=== PATIENT | female | born 1950 | race Caucasian/White ===

== ENCOUNTER 2016-09-16 14:02 | Outpatient (RCR) | payer MEDICAID, MEDICARE, OTHER ==
--- OUTSIDE RECORDS SUMMARY | 2016-08-24 14:11 | XMS REPORT | Continuity of Care Document ---
Author Author [facility] Organization [facility] Address Unknown Phone Unavailable Care Team Providers Care Breast Surgeon Name Role Phone Colleen Deal PCP [phone] Source Comments Some departments are not documenting in the electronic medical record. If you do not see the information that you expected, contact Release of Information in the Health Information Management department at [phone] for further assistance in locating additional records.[facility] Active Allergies and Adverse Reactions Allergen Noted Date Severity Reactions Comments Codeine 05/26/2016 Low NAUSEA ONLY Morphine 05/18/2016 Medium RASH Muscle spasms Current Medications Prescription Sig. Disp. Refills Start End Date Status Date pantoprazole DR Take 40 mg by mouth Active (PROTONIX) 40 mg tablet daily. valsartan (DIOVAN) 320 mg Take 320 mg by mouth Active tablet daily. fluoxetine (PROZAC) 60 mg Take 60 mg by mouth Active tablet daily. atenolol (TENORMIN) 100 Take 100 mg by mouth Active mg tablet daily. colchicine 0.6 mg tablet Take 0.6 mg by mouth Active daily. amLODIPine (NORVASC) 10 Take 10 mg by mouth Active mg tablet daily. metFORMIN-ER(+) Take 1,000 mg by mouth Active (FORTAMET) 1,000 mg twice daily. extended release tablet atorvastatin (LIPITOR) 20 Take 20 mg by mouth Active mg tablet daily. oxyCODONE (ROXICODONE, Take 1-2 Tabs by mouth 45 Tab 0 07/06/20 Active OXY-IR) 5 mg tablet every 3 hours as needed 16 for Pain Earliest Fill Date: 07/06/16 polyethylene glycol 3350 Take 1 Packet by mouth 30 Each 0 07/06/20 Active (MIRALAX) 17 g packet daily. 16 senna/docusate Take 1 Tab by mouth twice 60 Tab 0 07/06/20 Active (SENOKOT-S) 8.6/50 mg daily. 16 tablet anastrozole (ARIMIDEX) 1 Take 1 Tab by mouth 30 Tab 3 07/27/20 Active mg tablet daily. TO begin AFTER 16 completion of radiation therapy Indications: Malignant neoplasm of pelvis enoxaparin (LOVENOX) 40 Inject 40 mg under the Active mg injection syringe skin every 12 hours. enoxaparin (LOVENOX) 40 Inject 0.4 mL under the 28 Syringe 0 06/29/20 07/27/20 mg injection syringe skin daily for 28 days. 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 Elevated testosterone level in female 05/18/2016 Resolved Problems Problem Noted Date Resolved Date Cyst of right ovary 05/18/2016 07/13/2016 Postmenopausal bleeding 05/18/2016 07/13/2016 Endometrial thickening on ultra sound 05/18/2016 07/13/2016 Abnormal cervix finding 05/18/2016 07/13/2016 Most Recent Encounters Date Type Specialty Providers Description 08/04/2016 Office Visit Radiation Therapy Wilver Zuniga MD Primary adenocarcinoma of pelvis (HCC) (Primary Dx) 07/27/2016 Office Visit Oncology Nirav Garcia MD Sex cord tumor of ovary, right (Primary Dx); Primary adenocarcinoma of pelvis (HCC); Sex cord tumor of right ovary 07/15/2016 Cancer Oncology Nirav Garcia MD Conference 07/15/2016 Telephone Oncology Nirav Garcia MD Appointment - Confirmed return visit with Dr. Garcia on 07/27/16 at 1100am 07/13/2016 Office Visit Oncology Mary Richardson PA Diarrhea, unspecified type (Primary Dx); Sex cord tumor of ovary, right; Functional diarrhea; Hot flashes; Bruise 07/07/2016 Documentation Chucho Du 07/05/2016 Surgery Nirav Garcia MD ROBOT-ASSISTED LAPAROSCOPIC RADICAL HYSTERECTOMY, BILATERAL SALPINGO-OOPHORECTOMY, PELVIC LYMPH NODE DISSECTION, CYSTOSCOPY 06/29/2016 Hospital Oncology Sarah Pitts, Encounter CASH CHECKER 06/29/2016 Office Visit Oncology Mary Richardson PA Cyst of ovary, unspecified laterality (Primary Dx) 06/29/2016 Anesthesia Sarah Pitts, Event CASH CHECKER 06/15/2016 Telephone Oncology Nirav Garcia MD Pain - Question about pain medication before surgery 06/10/2016 Telephone Oncology Nirav Garcia MD Records Request - No call- Received fax 06/10/2016 Telephone Oncology Nirav Garcia MD Records Request 06/08/2016 Telephone Cardiology Sandy Nielson RN Results - Nuc results called 06/06/2016 [facility] Radiology Nirav Garcia MD Encounter Josie Álvarez MD 06/06/2016 [facility] Cardiology Josie Álvarez MD Encounter 06/03/2016 Telephone Oncology Nirav Garcia MD Results 05/30/2016 Documentation Cardiology Kathleen Orozco Labs Only - FLP 05/30/2016 Orders Only Cardiology Charis Desai RN 05/27/2016 Telephone Oncology Nirav Garcia MD Appointment - schedule doppler 05/26/2016 Office Visit Cardiology Josie Álvarez MD New Patient; Pre-op Clearance - hysterectomy with Dr. Nirav Garcia 05/26/2016 Telephone Nirav Loyola MD Records Request - Received Medical Records 05/25/2016 Telephone Nirav Loyola MD Referral - Schedule patient for cardiac clearance 05/25/2016 Telephone Oncology Nirav Garcia MD Referral - Informed patient of referral to [facility] Social History Tobacco Use Types Packs/Day Years Used Date Former Smoker Cigarettes 1.5 50 Quit: 10/18/2015 Smokeless Tobacco: Never Used Alcohol Use Drinks/Week oz/Week Comments No Last Filed Vital Signs Vital Sign Reading Time Taken Blood Pressure 143/75 08/04/2016 11:09 AM [employer]NIC STUDIES PROFESSOR Pulse 76 08/04/2016 11:09 AM ETHNIC STUDIES PROFESSOR Temperature 36.4 C (97.5 F) 08/04/2016 11:09 AM ETHNIC STUDIES PROFESSOR Respiratory Rate 16 08/04/2016 11:09 AM ETHNIC STUDIES PROFESSOR Height 1.676 m (5' 5.98") 08/04/2016 11:09 AM ETHNIC STUDIES PROFESSOR Weight 101.787 kg (224 lb 6.4 08/04/2016 11:09 AM ETHNIC STUDIES PROFESSOR oz) Body Mass Index 36.24 08/04/2016 11:09 AM ETHNIC STUDIES PROFESSOR Oxygen Saturation 98% 08/04/2016 11:09 AM ETHNIC STUDIES PROFESSOR Plan of Care Date Type Specialty Providers Description 10/26/2016 Appointment Oncology Nirav Garcia MD [address] [place] [address] [phone] (Fax) Health Maintenance Due Date Last Done Comments Hepatitis C Screening 1950 Physical (Comprehensive) 1958 Exam Pertussis Vaccine 1962 Tetanus Vaccine 1968 Breast Cancer Screening 1991 Colorectal Cancer 2001 Screening Shingles Vaccine 2011 Influenza Vaccine 05/19/2016 Cervical Cancer Screening 05/18/2019 05/18/2016 Procedures from Last 3 Months Procedure Name Priority Date/Time Associated Diagnosis Comments PROCEDURES-SCAN 07/09/2016 Results for this 8:05 AM CDT procedure are in the results section. ROBOT-ASSISTED 07/05/2016 Postmenopausal bleeding LAPAROSCOPIC RADICAL 11:35 AM CDT HYSTERECTOMY, BILATERAL SALPINGO-OOPHORECTOMY, PELVIC LYMPH NODE DISSECTION, CYSTOSCOPY Special Needs Pending clearances Results from Last 3 Months TUMOR PROGNOSTIC MARKERS SCAN (08/01/2016 11:57 AM)Only the most recent of 2 results within the time period is included. Narrative Ordered by an unspecified provider. PATHOLOGY INTEROPERATIVE REPORT SCAN (07/12/2016 8:56 AM) Narrative Ordered by an unspecified provider. PROCEDURES-SCAN (07/09/2016 8:05 AM) Narrative Ordered by an unspecified provider. NON-STATIC BALANCER CYTOLOGY (BODY FLUIDS/TISSUE) (07/06/2016 1:35 PM) Component Value Range Cytology [facility] [email or web address] Mishel Young MD, Director Cytopathology Department of Pathology and Laboratory Medicine [address] [place] [address] Office: [phone] CYTOLOGY REPORT NAME: OMAIRA GEORGE CYTOLOGY #: [id number] MR #: [id number] ALT ID #: [id number] #: [id number] LOCATION: 53 DATE OF PROCEDURE: 07/06/2016 13:35 AGE: 65 SEX: F DATE RECEIVED: 07/06/2016 : 1950 TIME RECEIVED: 13:35 PHYSICIAN: NIRAV FINNEY DATE OF REPORT: 07/08/2016 COPY TO: DATE OF PRINTIN07/08/2016 HISTORY: Date of Last Menstrual Period: None Given Menstrual History: None Given Contraceptive History: None Given Cancer History: None Given Infection History: None Given Treatment History: None Given Other Clinical Conditions: None Given CLINICAL DIAGNOSIS: 65 year old female with a clinical history of elevated testosterone and ovarian cyst. MATERIAL RECEIVED: A: Pelvic Washing ################################################## ###################### Final Diagnosis: A. Pelvic Washing: Negative for malignant cells. Please also see concurrent surgical pathology report ([id number]). Attestation: By this signature, I attest that I have personally formulated the final interpretation expressed in this report and that the above diagnosis is based upon my examination of the slides and/or other material indicated in this report. cameron/07/07/2016 +++Electronically Signed Out By Mera Porter MD PhD, Attending Physician+++ Cervical cytology is a SCREENING TEST primarily for detecting cancers and precancerous lesions. This screening test has a well documented false negative rate. Your patient's pap test results should be interpreted in conjunction with history and clinical findings. Reported using [employer] terminology. ################################################## ###################### POC GLUCOSE (07/06/2016 12:29 PM)Only the most recent of 5 results within the time period is included. Component Value Range Glucose, POC 135 (H) 70-100 MG/DL COMPREHENSIVE METABOLIC PANEL (07/06/2016 4:55 AM) Component Value Range Sodium 139 137-147 MMOL/L Potassium 3.6 3.5-5.1 MMOL/L Chloride 104 98-110 MMOL/L Glucose 122 (H) 70-100 MG/DL Blood Urea Nitrogen 23 7-25 MG/DL Creatinine 1.09 (H) 0.4-1.00 MG/DL Calcium 8.2 (L) 8.5-10.6 MG/DL Total Protein 6.4 6.0-8.0 G/DL Total Bilirubin 0.7 0.3-1.2 MG/DL Albumin 3.8 3.5-5.0 G/DL Alk Phosphatase 54 25-110 U/L AST (SGOT) 51 (H) 7-40 U/L CO2 24 21-30 MMOL/L ALT (SGPT) 48 7-56 U/L Anion Gap 11 3-12 eGFR Non 51 (L)Comment: >60 mL/min The eGFR is not validated for use in drug dosing adjustments. Continue to use estimated creatinine clearance per dosing reference text. Please contact the Clinical Pharmacist for questions. eGFR >60Comment: >60 mL/min The eGFR is not validated for use in drug dosing adjustments. Continue to use estimated creatinine clearance per dosing reference text. Please contact the Clinical Pharmacist for questions. Specimen Blood CBC (07/06/2016 4:55 AM)Only the most recent of 2 results within the time period is included. Component Value Range White Blood Cells 13.1 (H) 4.5-11.0 K/UL RBC 4.17 4.0-5.0 M/UL Hemoglobin 13.1 12.0-15.0 GM/DL Hematocrit 38.6 36-45 % MCV 92.5 80-100 FL MCH 31.3 26-34 PG MCHC 33.9 32.0-36.0 G/DL RDW 14.9 11-15 % Platelet Count 141 (L) 150-400 K/UL MPV 9.4 7-11 FL Specimen Blood PHOSPHORUS (07/06/2016 4:55 AM) Component Value Range Phosphorus 4.0 2.0-4.0 MG/DL Specimen Blood MAGNESIUM (07/06/2016 4:55 AM) Component Value Range Magnesium 1.2 (L) 1.6-2.6 MG/DL Specimen Blood SURGICAL PATHOLOGY (07/05/2016 3:36 PM) Component Value Range PATHOLOGY REPORT [facility] [email or web address] Mishel Young MD, PhD, Director of Anatomic Pathology Department of Pathology and Laboratory Medicine [address] [place] [id number] Surgical Pathology Office: [phone] SURGICAL PATHOLOGY REPORT NAME: OMAIRA GEORGE SURG PATH #: [id number] MR #: [id number] SPECIMEN CLASS: SR BILLING #: [id number] ALT ID #: LOCATION: 53 DATE OF PROCEDURE: 07/05/2016 AGE: 65 SEX: F DATE RECEIVED: 07/05/2016 : 1950 TIME RECEIVED: 15:36 PHYSICIAN: NIRAV FINNEY DATE OF REPORT: 07/13/2016 COPY TO: DATE OF PRINTIN07/13/2016 ################################################## ###################### Final Diagnosis: A. Soft tissue, "uterosacral nodule", biopsy: Metastatic adenocarcinoma. See comment. B. 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 See comment #1. Fallopian tube: No diagnostic abnormalities. C. Uterus and cervix, hysterectomy: Cervix: Low grade squamous intraepithelial lesion (LSIL/BETSY 1). Microglandular hyperplasia and Nabothian cyst. Endometrium: Weakly proliferative endometrium Myometrium, right parametrium: Involvement by adenocarcinoma, endometrioid type with squamous differentiation arising in endometriosis and adenomyosis within the posterior wall of the uterus and the right parametrium, FIGO I, nuclear grade 2. See comment #2. Left parametrium: There is no evidence of malignancy. Lymph node (1): There is no evidence of malignancy. (0/1) D. Soft tissue, "left uterosacral peritoneum", excision: No diagnostic abnormalities. E. Ovary and fallopian tube, "left tube and ovary", salpingo-oophorectomy: Ovary: No diagnostic abnormalities. Fallopian tube: Simple paratubal cysts. F. Lymph nodes, "left pelvic lymph nodes", dissection: There is no evidence of malignancy in 10 lymph nodes (0/10). G. Lymph nodes, "right pelvic lymph nodes", dissection: There is no evidence of malignancy in 4 lymph nodes (0/4). Comment: Comment #1: The tumor in the right ovary is composed of sheets, cords and nests of cells with abundant eosinophilic, clear and foamy cytoplasm. Tumor nuclei are round with prominent nucleoli and occasional pseudoincludions. Immunohistochemical stains performed on block B3 show the tumor cells are positive for Inhibin, estrogen and progesterone. They are negative for OCT4, CAM52, D2-40, AFP and b-HCG. Ki-67 revealed proliferation index of 1-2%. The differential diagnosis should include a steroid cell tumor, not otherwise classified. 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 We were unable finding the classic crystals of Shelia seen in classic Leydig cell tumors. This tumor is expected to behave in a benign fashion, however, close follow up is recommended. OVARY or FALLOPIAN TUBE: Oophorectomy, Salpingo-Oophorectomy, SubtotalOophorectomy or Removal of Tumor in Fragments, Hysterectomy with Salpingo-Oophorectomy CAP Version: OvaryFallopian 1.0.0.0 Note: Applies to ovarian primary tumor. If bilateral tumors of 2 different histologic types are present, separate case summaries should be used for eachtumor. 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 Histologic Grade (required for all carcinomas except clear cell carcinoma, low- and high-grade serous carcinoma, and Sertoli-Leydig cell tumors) World Health Organization (WHO) Grading System (applies to all carcinomas, including serous carcinomas) Not applicable Implants (applies only to advanced stage serous/seromucinous borderline tumors) Not present Extent of Involvement of Other Tissues/Organs Left ovary Not involved Right fallopian tube Not involved Left fallopian tube Not involved Uterus Not involved Peritoneal Ascitic Fluid: Negative for malignancy (normal/benign): Please see cytology report [id number] Pleural Fluid Not performed/unknown Treatment Effect (applicable to carcinomas treated with neoadjuvant therapy): Not applicable Lymph-Vascular Invasion Not identified Pathologic Staging (pTNM [FIGO]): pT1a N0 Mx Primary Tumor (pT) Ovary pT1a [IA]: Tumor limited to one ovary; capsule intact, no tumor on ovarian surface. No malignant cells in ascites or peritoneal washings Regional Lymph Nodes (pN) pN0: No regional lymph node metastasis Pelvic lymph nodes: Number of Pelvic Lymph Nodes Examined: 15 Number of Pelvic Lymph Nodes Involved: 0 Distant Metastasis (pM) (required only if confirmed pathologically in this case) Not applicable The pathologic stage assigned here should be regarded as provisional, as it reflects only current pathologic data and does not incorporate full knowledge of the patient's clinical status and/or prior pathology. Comment #2: Immunohistochemical stains performed on block A1 show the tumor cells are positive for CK7, and negative for CK5/6,20, calretinin, WT1 (focal/weak) , and p53, supporting the above diagnosis. Ki-67 proliferation index is around 30%. Hysterectomy, With or Without Other OrgansorTissues CAP Version: Endometrium 3.3.0.0 Specimen Uterine corpus Cervix Left parametrium Right parametrium Vaginal cuff Procedure (select all that apply) Radical hysterectomy Lymph Node Sampling (select all that apply) Performed: Pelvic lymph nodes (0/15) Specimen Integrity Intact hysterectomy specimen Tumor Site Other (specify): Serosal surface, posterior wall of myometrium and right parametrium Tumor Size Greatest dimension: 1.8 cm Additional dimensions: 1.7 x 1.2 cm Histologic Type Endometrioid adenocarcinoma, with squamous differentiation Histologic Grade International Federation of Gynecology and Obstetrics (FIGO) Grading System (applies to endometrioid and mucinous adenocarcinomas only): FIGO grade 1 For other carcinomas: G1: Well differentiated Myometrial Invasion Present: On the outer surface and within adenomyosis Involvement of Cervix (select all that apply) Not involved Extent of Involvement of Other Organs (select all that apply) Right ovary Not involved Left ovary Not involved Right fallopian tube Not involved Left fallopian tube Not involved Vagina Not involved Right parametrium Involved Left parametrium Involved Not involved Omentum N/A Rectal wall N/A Bladder wall N/A Pelvic wall N/A Bladder mucosa and/or bowel mucosa N/A Peritoneal Ascitic Fluid Negative for malignancy/normal/benign Margins Tumor was identified in parametrium Lymph-Vascular Invasion Not identified Prognostic markers ordered: Yes.See Tumor Prognostic Marker addendum in Results Review. Pursuant to the Backup Administrator Program at the [facility] Pathology Department, selected slides from this case have been concurrently reviewed by the following pathologists: Dr. Wilfrido Sanchez and Francesco Bustamante who agree with the final diagnosis. Attestation: By this signature, I attest that I have personally formulated the final interpretation expressed in this report and that the above diagnosis is based upon my examination of the slides and/or other material indicated in this report. +++Electronically Signed Out By+++ ma/07/05/2016 Interpreted by: Mera Porter MD PhD, Attending Physician Shmuel Mccullough D.O. 07/13/2016 ################################################## ###################### Material Received: A: uterosacral nodule B: right tube and ovary C: uterus and cervix D: left uterosacral peritoneum E: left tube and ovary F: left pelvic lymph nodes G: right pelvic lymph ndoes History: 65-year-old female with a clinical history of postmenopausal bleeding, elevated testosterone level and ovarian cyst. Gross Description: A. Received fresh, labeled with the patient's name and "uterosacral nodule" is a 0.4 x 0.4 x 0.3 cm alvarez pink portion of soft tissue. The specimen is entirely submitted for frozen section consultation with a remnant being placed in cassette A1FS. (ads) B. Received fresh labeled with the patient's name and "right tube and ovary" is a 22 gram oophorectomy specimen with ovary measuring 4.1 x 3.2 x 2.0 cm. The external surface is smooth alvarez. The ovary is opened to reveal a lobular, yellow and well-circumscribed tumor measuring 2.7 x 2.2 x 2.0 cm. There is a 1.9 x 0.5 cm area of grossly unremarkable ovarian tissue. Attached to the ovary is a 6.5 cm fimbriated fallopian tube with a diameter of 0.3 cm. The external surface of the fallopian tube is smooth and pink. The tube is serially sectioned to reveal a pinpoint lumen. No gross abnormalities are observed within the fallopian tube. A single fragment of mesosalpinx measures 3.1 x 2.1 x 0.8 cm. The specimen is submitted as follows: B2-B5 Ovarian mass submitted entirely. B6 Fallopian tube entirely. B7-B8 Mesosalpinx entirely. C. Fixative: Fresh Labeled: "Uterus and cervix" Weight: 115 grams Measurement: Cervical os to fundus 8.6cm, cornu to cornu 5.9cm, anterior to posterior 2.8cm Serosa: Alvarez-pink and smooth Cervical os: Slit like and measures 1.4 cm. Endometrial cavity: 3.7 x 1.9 cm Endocervical canal: 3.1 x 0.7 cm Endometrial thickness: 0.3 cm Myometrial thickness: 2.1 cm Right parametrium: 7.6 x 1.4 x 0.9 cm Left parametrium: 6.4 x 1.1 x 1.1 cm Anterior Vaginal cuff: 5.1 x 2.4 x 0.6cm Posterior vaginal cuff: 5.1 x 1.7 x 0.9cm Located in the posterior wall of the uterus is a 1.8 x 1.7 x 1.2 cm alvarez-white whorled nodule, no hemorrhage or necrosis is grossly identified. The specimen is submitted for frozen and permanents as follows: C1FS Uterus frozen section remnant. C2FS Cervix frozen section remnant. C3-C5 12:00-3:00 Cervix, submitted sequentially. C6-C9 3:00-6:00 Cervix, submitted sequentially. C10-C14 6:00-9:00 cervix, submitted sequentially. C15-C19 9:00-12:00 cervix, submitted sequentially. C20 Anterior lower uterine segment. C21 Posterior lower uterine segment. C22 Full thickness anterior wall. C23 Full thickness posterior wall. C24-C31 Right left parametrium (inked black). C32-C39 Left parametrium (inked black). C40-C41 Entire posterior wall nodule. C42-C45 Herb Digger sections from posterior wall serosa. (ads) D. Received in formalin, labeled with the patient's name and "left uterosacral peritoneum" is a 2.7 x 0.7 x 0.6 cm in aggregate alvarez-pink portions of soft tissue. The specimen is entirely submitted in cassettes D1 and D2. (ads) E. Received fresh and labeled with the patient's name and "left tube and ovary" is a 4 gram oophorectomy specimen with ovary measuring 3.1 x 2.5 x 0.8 cm. The external surface of the ovary is smooth and alvarez. The ovary is opened to reveal grossly normal ovary. Attached to the ovary is a 3.8 cm fimbriated fallopian tube with a diameter of 0.7 cm. The external surface of the fallopian tube is grossly normal. A single fragment of mesosalpinx is included, measuring 3.2 x 2.3 x 0.8 cm. The fallopian tube is serially sectioned to reveal a pinpoint lumen. No gross abnormalities are observed within the fallopian tube. The specimen is submitted as follows: E1-E3 Entire ovary. E4 Fimbria bisected. E5 Remainder of fallopian tube. E6-E7 Entire mesosalpinx. (ads) F. Received in formalin labeled with the patient's name and "left pelvic lymph nodes" are ten pink-alvarez fatty possible lymph nodes ranging from 0.3 cm up to 2.5 cm in greatest dimension. All identified lymph nodes are entirely submitted as follows: F1 Bisected single lymph node. F2-F4 Two lymph nodes submitted per cassette. F5 Three lymph nodes. (arl) G. Received in formalin labeled with the patient's name and "right pelvic lymph nodes" are five pink-alvarez fatty possible lymph nodes ranging from 0.4 cm up to 2.6 cm in greatest dimension, all identified lymph nodes are entirely submitted as follows: G1 Bisected lymph node. G2 Two whole lymph nodes. G3 Two whole lymph nodes. (arl) paj/07/05/2016 Shmuel Mccullough D.O. Intraoperative Consultation: A1FS, soft tissue," uterosacral nodule", biopsy: Atypical glandular cells in a desmoplastic stroma, worrisome for metastatic adenocarcinoma. Definitive diagnosis deferred to permanent sections. 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 steroid tumor not otherwise specified. C1FS, uterus and cervix, "uterus and cervix", biopsy: Negative for malignancy. Mera Porter MD PhD, Attending Physician If immunohistochemical stains and/or in situ hybridization are cited in this report, the performance characteristics were determined by the Department of Pathology and Laboratory Medicine of the [facility] ([employer]) in compliance with CLIA'88 regulations. Some of these tests rely on the use of "analyte specific reagents" and are subject to specific labeling requirements by the FDA. Known positive and negative control tissues demonstrate appropriate staining. This testing was developed by the Department of Pathology and Laboratory Medicine of the [facility]. It has not been cleared or approved by the FDA. The FDA has determined that such clearance or approval is not necessary. TYPE & CROSSMATCH (07/05/2016 1:20 PM) Component Value Range Units Ordered 0 Crossmatch Expires 07/08/2016 Record Check FOUND ABO/RH(D) O POS Antibody Screen NEG Electronic Crossmatch YES Specimen Blood TYPE & SCREEN (NOT CROSSMATCH ELIGIBLE) (06/29/2016 1:39 PM) Component Value Range ABO/RH(D) O POS Antibody Screen NEG Blood Component Type RED CELL GROUP BASIC METABOLIC PANEL (06/29/2016 1:39 PM) Component Value Range Sodium 138 137-147 MMOL/L Potassium 3.8 3.5-5.1 MMOL/L Chloride 104 98-110 MMOL/L CO2 22 21-30 MMOL/L Anion Gap 12 3-12 Glucose 87 70-100 MG/DL Blood Urea Nitrogen 15 7-25 MG/DL Creatinine 1.17 (H) 0.4-1.00 MG/DL Calcium 8.8 8.5-10.6 MG/DL eGFR Non 47 (L)Comment: >60 mL/min The eGFR is not validated for use in drug dosing adjustments. Continue to use estimated creatinine clearance per dosing reference text. Please contact the Clinical Pharmacist for questions. eGFR 56 (L)Comment: >60 mL/min The eGFR is not validated for use in drug dosing adjustments. Continue to use estimated creatinine clearance per dosing reference text. Please contact the Clinical Pharmacist for questions. US DUPLEX SCAN CAROTID BILATERAL (06/06/2016 1:47 PM) Impressions Mild calcified right carotid bulb plaque.There is no evidence of hemodynamically significant CCA or ICA stenosis. Finalized by Nolvia Hale M.D. on 06/06/2016 4:59 PM. Dictated by Nolvia Hale M.D. on 06/06/2016 4:56 PM. Narrative Carotid Doppler Clinical Indication: Female, 65 years; hypertension, coronary artery disease; preoperative surgical clearance. Technique:Multiple grayscale sonographic images were obtained throughout both carotid systems with additional color and spectral Doppler acquisitions. Comparison: None Findings: RIGHT: CCA 75 cm/sec ECA 70 PSV ICA65 EDV ICA17 Ratio ICA/CCA <1.0 The vertebral artery demonstrates normal direction of flow. Grayscale images demonstrate mild predominantly calcified plaque at the carotid bulb. Spectral analysis demonstrates no critical CCA or ICA stenosis. LEFT: CCA 71 cm/sec ECA 95 PSV ICA57 EDV ICA27 Ratio ICA/CCA <1.0 The vertebral artery demonstrates normal direction of flow. Grayscale images demonstrate no significant plaque or high-grade stenosis. Spectral analysis demonstrates no critical CCA or ICA stenosis. Procedure Note Interface, Radiant Results - MonJun 06, 2016 5:02 PM CDT Carotid Doppler Clinical Indication: Female, 65 years; hypertension, coronary artery disease; preoperative surgical clearance. Technique: Multiple grayscale sonographic images were obtained throughout both carotid systems with additional color and spectral Doppler acquisitions. Comparison: None Findings: RIGHT: CCA 75 cm/sec ECA 70 PSV ICA 65 EDV ICA 17 Ratio ICA/CCA <1.0 The vertebral artery demonstrates normal direction of flow. Grayscale images demonstrate mild predominantly calcified plaque at the carotid bulb. Spectral analysis demonstrates no critical CCA or ICA stenosis. LEFT: CCA 71 cm/sec ECA 95 PSV ICA 57 EDV ICA 27 Ratio ICA/CCA <1.0 The vertebral artery demonstrates normal direction of flow. Grayscale images demonstrate no significant plaque or high-grade stenosis. Spectral analysis demonstrates no critical CCA or ICA stenosis. IMPRESSION Mild calcified right carotid bulb plaque. There is no evidence of hemodynamically significant CCA or ICA stenosis. Finalized by Nolvia Hale M.D. on 06/06/2016 4:59 PM. Dictated by Nolvia Hale M.D. on 06/06/2016 4:56 PM. D-SPECT REGADENOSON THALLIUM MPI STRESS TEST (06/06/2016 8:19 AM) Component Value Range Stress Dose 2.5 mCi Rest Dose 0.55 mCi Baseline HR 71 bpm Peak HR 98 bpm Baseline BP - Sys 146 mmHg Peak BP - Sys 140 mmHg PUL TO JESSICA COUNT RATIO 0.38 MPI EF 52 % LV volume 58 mL Referring Provider Colleen Deal MD Study Number [id number] Baseline BP - Day 92 mmHg Peak BP - Day 80 Summed Stress Score 2 Summed Rest Score 0 Nuclear Cardiology In aggregate the current study is low risk in Mortality Risk regards to predicted annual cardiovascular mortality rate. Narrative Nuclear Report [facility] Cardiology Division of Nuclear Cardiac Imaging Consultation Report EXAMINATION: Gated [id number] Chloride myocardial perfusion single-photon emission computed tomography (D-SPECT) for viability, resting regional wall function, post stress ejection fraction, and perfusion imaging utilizing Regadenoson pharmacological stress. Date of Study: 06/06/16 Study#: [id number] KU Billing ID:[id number] Referring Physician: Colleen Deal MD Requested by: Josie Álvarez MD INDICATIONS FOR STUDY (HISTORY): This is a 65 year old female with a history of Hypercholesterolemia HTN and tobacco dependemce.This study is being done in the preoperative setting to rule out significant myocardial ischemia. PROCEDURAL DETAILS:Initially, the patient received a 5 ml intravenous infusion of Regadenoson at 0.08 mg/ml over 10 to 15 seconds. Approximately 20 seconds later 2.5 mCi of [id number] was injected.Throughout the infusion continuous electrocardiographic monitoring and serial electrocardiograms were obtained, as well as intermittent blood pressure recordings. Gated upright D-SPECT tomographic images were then acquired approximately 5 minutes after discontinuation of the regadenoson infusion. When indicated supine D-SPECT images were also obtained. The patient returned in approximately 4 hours and received an additional 0.55 mCi of [id number] Chloride as a reinjected dose to assist in the detection of myocardial ischemia and viability.Images were then reacquired and compared to post stress images. FINDINGS: Pharmacological Stress Electrocardiogram:The patient's resting heart rate was 71 bpm and the resting blood pressure was 146/92.The patients peak stress heart rate was 98 bpm and the peak stress blood pressure was 140/80.The patient experienced flushing. The resting ECG shows Normal sinus rhythm with couple PVC's.Following Regadenoson infusion there are no new diagnostic ECG changes. Conclusion: Pharmacologic stress ECG is negative for ischemia. Yozxqgghi-sj-Kofikmsnvz Count Ratio: 0.38(normal=or < 0.52). Scintigraphic Findings: The LV appears to be normal sized. Mild breast attenuation is seen. There is no TID. Pulmonary tracer uptake is normal Summed Stress Score:2, Summed Rest Score:0 Tomographic:Tomographic images were reconstructed in three orthogonal views. There is mildly decreased inferior wall tracer uptake noted in upright images only. The tracer uptake is completely normal on stress supine images.All myocardial segments appear viable. Polar coordinate map identifies no perfusion abnormalities. Regional Wall Thickening and Motion Post Stress:There is normal left ventricular wall motion and thickening of all myocardial segments. Left Ventricular Ejection Fraction (post stress, in the resting state)= 52 %. Left Ventricular End Diastolic Volume: 58 mL. SUMMARY/OPINION:This study is normal with no evidence of significant myocardial ischemia. Left ventricular systolic function is normal. There are no high risk prognostic indicators present. There are no prior studies available for comparison. ECG/QRS (05/26/2016 8:41 AM) Component Value Range QRS DURATION 104
[~2016-09-16 14:02] MED LIST: AC325T PO; ALLP300T PO; ASP325TEC PO; ATEN50TA PO; CLPD75T PO; CPR500T PO; DOXY100C2 PO; FLUO40CA PO; PNT40TEC PO; PRV20T PO; VALS1TAB43 PO
== END 2016-09-20 09:54 | disposition home or self-care (01) ==
LOC: ONC 14:02
PROVIDERS: ATTEND Radiology Radiation Oncology
DX: Z51.0 Encounter for antineoplastic radiation therapy (principal); C54.1 Malignant neoplasm of endometrium
CPT/HCPCS: 77280; 77290; 77295; 77334; 77336; 77412; 77417; 77470; 99215

== ENCOUNTER 2016-09-21 13:41 | Outpatient (RCR) | payer MEDICARE, MEDICAID ==
--- OUTSIDE RECORDS SUMMARY | 2016-09-20 09:46 | XMS REPORT | Continuity of Care Document ---
Author Author [facility] Organization [facility] Address Unknown Phone Unavailable Care Team Providers Care Segment Block Layer Name Role Phone Colleen Deal PCP [phone] Source Comments Some departments are not documenting in the electronic medical record. If you do not see the information that you expected, contact Release of Information in the Health Information Management department at [phone] for further assistance in locating additional records.[facility] Active Allergies and Adverse Reactions Allergen Noted [...] mg injection syringe skin every 12 hours. Active Problems Problem Noted Date Primary adenocarcinoma [...] Recent Encounters Date Type Specialty Providers Description 09/13/2016 Telephone Oncology Promise Garcia MD Consult - Radiation Oncology Consultation Note received 08/04/2016 Office Visit Radiation Therapy Wilver Zuniga MD Primary adenocarcinoma of pelvis (HCC) (Primary Dx) 07/27/2016 Office Visit Oncology Promise Garcia MD Sex cord tumor of ovary, right (Primary Dx); Primary adenocarcinoma of pelvis (HCC); Sex cord tumor of right ovary 07/15/2016 Cancer Oncology Promise Garcia MD Conference 07/15/2016 Telephone Oncology Promise Garcia MD Appointment - Confirmed return visit with Dr. Garcia on 07/27/16 at 1100am 07/13/2016 Office Visit Oncology Mary Richardson PA Diarrhea, unspecified type (Primary Dx); Sex cord tumor of ovary, right; Functional diarrhea; Hot flashes; Bruise 07/07/2016 Documentation Chucho Du 07/05/2016 Surgery Promise Garcia MD ROBOT-ASSISTED LAPAROSCOPIC RADICAL HYSTERECTOMY, BILATERAL SALPINGO-OOPHORECTOMY, PELVIC LYMPH NODE DISSECTION, CYSTOSCOPY 06/29/2016 [facility] Oncology Sarah Pitts, Encounter SEWING DEMONSTRATOR 06/29/2016 Office Visit Oncology Mary Richardson PA Cyst of ovary, unspecified laterality (Primary Dx) 06/29/2016 Anesthesia Sarah Pitts, Event SEWING DEMONSTRATOR Social History Tobacco Use Types Packs/Day Years Used Date Former Smoker Cigarettes 1.5 50 Quit: 10/18/2015 Smokeless Tobacco: Never Used Alcohol Use Drinks/Week oz/Week Comments No Last Filed Vital Signs Vital Sign Reading Time Taken Blood Pressure 143/75 08/04/2016 11:09 AM CORRECTIONAL FACILITY PSYCHIATRIST Pulse 76 08/04/2016 11:09 AM CORRECTIONAL FACILITY PSYCHIATRIST Temperature 36.4 C (97.5 F) 08/04/2016 11:09 AM CORRECTIONAL FACILITY PSYCHIATRIST Respiratory Rate 16 08/04/2016 11:09 AM CORRECTIONAL FACILITY PSYCHIATRIST Height 1.676 m (5' 5.98") 08/04/2016 11:09 AM CORRECTIONAL FACILITY PSYCHIATRIST Weight 101.787 kg (224 lb 6.4 08/04/2016 11:09 AM CORRECTIONAL FACILITY PSYCHIATRIST oz) Body Mass Index 36.24 08/04/2016 11:09 AM CORRECTIONAL FACILITY PSYCHIATRIST Oxygen Saturation 98% 08/04/2016 11:09 AM CORRECTIONAL FACILITY PSYCHIATRIST Plan of Care Date Type Specialty Providers Description 10/26/2016 Appointment Oncology Promies Garcia MD [address] [place] [address] [phone] (Fax) Health Maintenance Due Date Last Done [...] AM) Narrative Ordered by an unspecified provider. NON-INTERLOCKING AND SIGNAL MECHANIC CYTOLOGY (BODY FLUIDS/TISSUE) (07/06/2016 1:35 PM) Component Value Range Cytology [facility] [email or web address] Mishel Young MD, Director Cytopathology Department of Pathology and Laboratory Medicine [address] [place] [phone] Office: [phone] CYTOLOGY REPORT NAME: RACHNA REDDY CYTOLOGY #: [id number] MR #: [id number] ALT ID #: BILLING #: [id number] LOCATION: 53 DATE OF PROCEDURE: 07/06/2016 13:35 AGE: 65 SEX: F DATE RECEIVED: 07/06/2016 : 1950 TIME RECEIVED: 13:35 PHYSICIAN: PROMISE FINNEY DATE OF REPORT: 07/08/2016 COPY TO: [...] Please also see concurrent surgical pathology report ([id number]). Attestation: By this signature, I attest that I have personally formulated the final interpretation expressed in this report and that the above diagnosis is based upon my examination of the slides and/or other material indicated in this report. [facility]/07/07/2016 +++Electronically Signed Out By Mera Porter MD PhD, Attending Physician+++ Cervical cytology is a SCREENING TEST primarily for detecting cancers and precancerous lesions. This screening test has a well documented false negative rate. Your patient's pap test results should be interpreted in conjunction with history and clinical findings. Reported using [employer] terminology. ################################################## ###################### POC GLUCOSE (07/06/2016 [...] PM) Component Value Range PATHOLOGY REPORT [facility] [email or web address] Mishel Young MD, PhD, Director of Anatomic Pathology Department of Pathology and Laboratory Medicine [address] [place] [id number] Surgical Pathology Office: [phone] SURGICAL PATHOLOGY REPORT NAME: RACHNA REDDY SURG PATH #: [id number] MR #: [id number] SPECIMEN CLASS: SR BILLING #: [id number] ALT ID #: LOCATION: 53 DATE OF PROCEDURE: 07/05/2016 AGE: 65 SEX: F DATE RECEIVED: 07/05/2016 : 1950 TIME RECEIVED: 15:36 PHYSICIAN: PROMISE FINNEY DATE OF REPORT: 07/13/2016 COPY TO: [...] for malignancy (normal/benign): Please see cytology report [id number] Pleural Fluid Not performed/unknown Treatment Effect (applicable [...] addendum in Results Review. Pursuant to the [employer] Senior Specialist Program at the [facility] Pathology Department, selected slides from this case [...] a 0.4 x 0.4 x 0.3 cm alston pink portion of soft tissue. The specimen is entirely submitted for frozen section consultation with a remnant being placed in cassette A1FS. (ads) B. Received fresh labeled with the patient's name and "right tube and ovary" is a 22 gram oophorectomy specimen with ovary measuring 4.1 x 3.2 x 2.0 cm. The external surface is smooth alston. The ovary is opened to reveal a [...] cornu 5.9cm, anterior to posterior 2.8cm Serosa: Alston-pink and smooth Cervical os: Slit like and [...] a 1.8 x 1.7 x 1.2 cm alston-white whorled nodule, no hemorrhage or necrosis is [...] black). C40-C41 Entire posterior wall nodule. C42-C45 Reinforcer sections from posterior wall serosa. (ads) D. Received in formalin, labeled with the patient's name and "left uterosacral peritoneum" is a 2.7 x 0.7 x 0.6 cm in aggregate alston-pink portions of soft tissue. The specimen is entirely submitted in cassettes D1 and D2. (ads) E. Received fresh and labeled with the patient's name and "left tube and ovary" is a 4 gram oophorectomy specimen with ovary measuring 3.1 x 2.5 x 0.8 cm. The external surface of the ovary is smooth and alston. The ovary is opened to reveal grossly [...] and "left pelvic lymph nodes" are ten pink-alston fatty possible lymph nodes ranging from 0.3 cm up to 2.5 cm in greatest dimension. All identified lymph nodes are entirely submitted as follows: F1 Bisected single lymph node. F2-F4 Two lymph nodes submitted per cassette. F5 Three lymph nodes. (arl) G. Received in formalin labeled with the patient's name and "right pelvic lymph nodes" are five pink-alston fatty possible lymph nodes ranging from 0.4 [...] of Pathology and Laboratory Medicine of the [facility] ([employer]) in compliance with CLIA'88 regulations. Some of these tests rely on the use of "analyte specific reagents" and are subject to specific labeling requirements by the FDA. Known positive and negative control tissues demonstrate appropriate staining. This testing was developed by the Department of Pathology and Laboratory Medicine of the [facility]. It has not been cleared or [...]
== END 2016-09-21 14:58 | disposition home or self-care (01) ==
LOC: ONC 13:41
PROVIDERS: ATTEND Radiology Radiation Oncology
DX: C54.1 Malignant neoplasm of endometrium (principal)
CPT/HCPCS: 77412

== ENCOUNTER → 2016-11-15 | Outpatient (CLI) | payer MEDICARE, MEDICAID ==
--- NOTE | 2016-11-15 14:28 | Diagnostic Imaging Report ---
PROCEDURE: CT chest without contrast. TECHNIQUE: Multiple contiguous axial images were obtained through the chest without the use of intravenous contrast. INDICATION: Followup pulmonary nodules. COMPARISON: CT chest of 05/12/2016. FINDINGS: Lungs and airway: No endoluminal lesion in the trachea or central bronchi. Scattered bilateral pulmonary nodules ranging from 3-5 mm are stable. No new pulmonary nodule, mass, or consolidation. Pleura: No pleural effusion or pneumothorax. Heart and mediastinum: Possible tiny calcified left thyroid nodule is unchanged. No supraclavicular or axillary lymphadenopathy. No mediastinal or juxtaphrenic lymphadenopathy. No discrete hilar lymphadenopathy, although evaluation is limited without IV contrast. Heart is borderline enlarged without pericardial effusion. Coronary artery calcifications and/or stents are noted. Normal-caliber thoracic aorta with scattered atherosclerotic calcified plaques. Upper abdomen: Diffuse hypoattenuation of the liver is compatible with diffuse hepatic steatosis. Remainder of the upper abdomen is grossly normal allowing for noncontrast imaging. Musculoskeletal: No concerning osseous lesions in the thorax. IMPRESSION: 1. Stable bilateral pulmonary nodules ranging in size from 3 to 5 mm. Given stability, these are likely benign in etiology. Followup CT chest in 12-18 months can be obtained to document stability of two years if the patient has strong risk factors for lung cancer. 2. No intrathoracic lymphadenopathy. 3. Diffuse hepatic steatosis. Dictated by: Dictated on workstation # [id number]
== END ==
LOC: RAD 12:07
PROVIDERS: ATTEND Family Medicine
DX: R91.8 Other nonspecific abnormal finding of lung field (principal); K76.0 Fatty (change of) liver, not elsewhere classified
CPT/HCPCS: 71250

== ENCOUNTER 2016-11-25 10:04 | Outpatient (RCR) | payer MEDICARE, MEDICAID ==
--- OUTSIDE RECORDS SUMMARY | 2016-09-21 15:07 | XMS REPORT | Continuity of Care Document ---
Author Author [facility] Organization [facility] Address Unknown Phone Unavailable Care Team Providers Care Beating Machine Operator Name Role Phone Colleen Deal PCP [phone] Source Comments Some departments are not documenting in the electronic medical record. If you do not see the information that you expected, contact Release of Information in the Health Information Management department at [phone] for further assistance in locating additional records.[facility]an [...] SALPINGO-OOPHORECTOMY, PELVIC LYMPH NODE DISSECTION, CYSTOSCOPY 06/29/2016 [facility] Oncology Sarah Pitts, Encounter MAGAZINE HAND 06/29/2016 Office Visit Oncology Mary Richardson PA Cyst of ovary, unspecified laterality (Primary Dx) 06/29/2016 Anesthesia Sarah Pitts, Event MAGAZINE HAND Social History Tobacco Use Types Packs/Day Years Used Date Former Smoker Cigarettes 1.5 50 Quit: 10/18/2015 Smokeless Tobacco: Never Used Alcohol Use Drinks/Week oz/Week Comments No Last Filed Vital Signs Vital Sign Reading Time Taken Blood Pressure 143/75 08/04/2016 11:09 AM APN Pulse 76 08/04/2016 11:09 AM APN Temperature 36.4 C (97.5 F) 08/04/2016 11:09 AM APN Respiratory Rate 16 08/04/2016 11:09 AM APN Height 1.676 m (5' 5.98") 08/04/2016 11:09 AM APN Weight 101.787 kg (224 lb 6.4 08/04/2016 11:09 AM APN oz) Body Mass Index 36.24 08/04/2016 11:09 AM APN Oxygen Saturation 98% 08/04/2016 11:09 AM APN Plan of Care Date Type Specialty Providers Description 10/26/2016 Appointment Oncology Promise Garcia MD [address] [place] [address] [phone] (Fax) Health Maintenance Due Date Last Done [...] AM) Narrative Ordered by an unspecified provider. NON-LEAD INSPECTOR CYTOLOGY (BODY FLUIDS/TISSUE) (07/06/2016 1:35 PM) Component Value Range Cytology [facility] [email or web address] Mishel Young MD, Director Cytopathology Department of Pathology and Laboratory Medicine [address] [place] [phone] Office: [phone] CYTOLOGY REPORT NAME: RACHNA REDDY CYTOLOGY #: [id number] MR #: [id number] ALT ID #: BILLING #: [id number] LOCATION: 53 DATE OF PROCEDURE: 07/06/2016 13:35 [...] Please also see concurrent surgical pathology report ([id number]). Attestation: By this signature, I attest that I have personally formulated the final interpretation expressed in this report and that the above diagnosis is based upon my examination of the slides and/or other material indicated in this report. [facility]/07/07/2016 +++Electronically Signed Out By Mera Porter MD PhD, Attending Physician+++ Cervical cytology is a SCREENING TEST primarily for detecting cancers and precancerous lesions. This screening test has a well documented false negative rate. Your patient's pap test results should be interpreted in conjunction with history and clinical findings. Reported using [employer] terminology. ################################################## ###################### POC GLUCOSE (07/06/2016 [...] PM) Component Value Range PATHOLOGY REPORT [facility] [email or web address] Mishel Young MD, PhD, Director of Anatomic Pathology Department of Pathology and Laboratory Medicine [address] [place] [phone] Surgical Pathology Office: [phone] SURGICAL PATHOLOGY REPORT NAME: RACHNA REDDY SURG PATH #: [id number] MR #: [id number] SPECIMEN CLASS: SR BILLING #: [id number] ALT ID #: LOCATION: 53 DATE OF [...] for malignancy (normal/benign): Please see cytology report [id number] Pleural Fluid Not performed/unknown Treatment Effect (applicable [...] addendum in Results Review. Pursuant to the Global Upstream Marketing Manager Program at the [facility] Pathology Department, selected slides from [...] black). C40-C41 Entire posterior wall nodule. C42-C45 Archivist Military History sections from posterior wall serosa. (ads) D. [...] of Pathology and Laboratory Medicine of the [facility] ([employer]) in compliance with CLIA'88 regulations. Some of these tests rely on the use of "analyte specific reagents" and are subject to specific labeling requirements by the FDA. Known positive and negative control tissues demonstrate appropriate staining. This testing was developed by the Department of Pathology and Laboratory Medicine of the [facility]. It has not been cleared or approved [...]
--- OUTSIDE RECORDS SUMMARY | 2016-09-21 15:10 | XMS REPORT | Continuity of Care Document ---
Author Author [facility] Organization [facility] Address Unknown Phone Unavailable Care Team Providers Care Detective Name Role Phone Colleen Deal PCP [phone] Source Comments Some departments are not documenting in the electronic medical record. If you do not see the information that you expected, contact Release of Information in the Health Information Management department at [phone] for further assistance in locating additional records.[facility] Active Allergies and Adverse Reactions Allergen [...] SALPINGO-OOPHORECTOMY, PELVIC LYMPH NODE DISSECTION, CYSTOSCOPY 06/29/2016 [facility] Oncology Sarah Pitts, Encounter FORM SETTER 06/29/2016 Office Visit Oncology Mary Richardson PA Cyst of ovary, unspecified laterality (Primary Dx) 06/29/2016 Anesthesia Sarah Pitts, Event FORM SETTER Social History Tobacco Use Types Packs/Day Years Used Date Former Smoker Cigarettes 1.5 50 Quit: 10/18/2015 Smokeless Tobacco: Never Used Alcohol Use Drinks/Week oz/Week Comments No Last Filed Vital Signs Vital Sign Reading Time Taken Blood Pressure 143/75 08/04/2016 11:09 AM THREAD GRINDER TOOL Pulse 76 08/04/2016 11:09 AM THREAD GRINDER TOOL Temperature 36.4 C (97.5 F) 08/04/2016 11:09 AM THREAD GRINDER TOOL Respiratory Rate 16 08/04/2016 11:09 AM THREAD GRINDER TOOL Height 1.676 m (5' 5.98") 08/04/2016 11:09 AM THREAD GRINDER TOOL Weight 101.787 kg (224 lb 6.4 08/04/2016 11:09 AM THREAD GRINDER TOOL oz) Body Mass Index 36.24 08/04/2016 11:09 AM THREAD GRINDER TOOL Oxygen Saturation 98% 08/04/2016 11:09 AM THREAD GRINDER TOOL Plan of Care Date Type Specialty Providers Description 10/26/2016 Appointment Oncology Promise Garcia MD [address] [place] [address] [phone] (Fax) Health Maintenance Due Date Last Done [...] AM) Narrative Ordered by an unspecified provider. NON-SUGAR CONTROLLER CYTOLOGY (BODY FLUIDS/TISSUE) (07/06/2016 1:35 PM) Component Value Range Cytology [facility] [email or web address] Concierge Mishel Young MD, Director Cytopathology Department of Pathology and Laboratory Medicine [address] [place] [id number] Office: [phone] CYTOLOGY REPORT NAME: RACHNA REDDY CYTOLOGY #: [id number] MR #: [id number] ALT ID #: BILLING #: [id number] LOCATION: 53 DATE OF PROCEDURE: 07/06/2016 13:35 [...] Please also see concurrent surgical pathology report ([id number]). Attestation: By this signature, I attest that I have personally formulated the final interpretation expressed in this report and that the above diagnosis is based upon my examination of the slides and/or other material indicated in this report. [facility]/07/07/2016 +++Electronically Signed Out By Mera Porter MD PhD, Attending Physician+++ Cervical cytology is a SCREENING TEST primarily for detecting cancers and precancerous lesions. This screening test has a well documented false negative rate. Your patient's pap test results should be interpreted in conjunction with history and clinical findings. Reported using [place] [facility] terminology. ################################################## ###################### POC GLUCOSE (07/06/2016 [...] PM) Component Value Range PATHOLOGY REPORT [facility] [email or web address] Concierge Mishel Young MD, PhD, Director of Anatomic Pathology Department of Pathology and Laboratory Medicine [address] [place] [id number] Surgical Pathology Office: [phone] SURGICAL PATHOLOGY REPORT NAME: RACHNA REDDY SURG PATH #: [id number] MR #: [id number] SPECIMEN CLASS: SR BILLING #: [id number] ALT ID #: LOCATION: 53 DATE OF [...] for malignancy (normal/benign): Please see cytology report [id number] Pleural Fluid Not performed/unknown Treatment Effect (applicable [...] addendum in Results Review. Pursuant to the Personal Financial Advisor Program at the [facility] Pathology [...] black). C40-C41 Entire posterior wall nodule. C42-C45 Dryer Feeder sections from posterior wall serosa. (ads) D. [...] of Pathology and Laboratory Medicine of the [facility] ([employer]) in compliance with CLIA'88 regulations. Some of these tests rely on the use of "analyte specific reagents" and are subject to specific labeling requirements by the FDA. Known positive and negative control tissues demonstrate appropriate staining. This testing was developed by the Department of Pathology and Laboratory Medicine of the [facility]. It has not been cleared or [...]
== END 2016-12-19 | disposition home or self-care (01) ==
LOC: ONC 10:04
PROVIDERS: ATTEND Radiology Radiation Oncology
DX: Z51.0 Encounter for antineoplastic radiation therapy (principal); C54.1 Malignant neoplasm of endometrium
CPT/HCPCS: 77300; 77307; 77334; 77336; 77412; 77417; 99213

== ENCOUNTER → 2017-01-05 | Outpatient (CLI) | payer MEDICARE, MEDICAID ==
--- NOTE | 2017-01-05 12:43 | Diagnostic Imaging Report ---
Renal ultrasound. INDICATION: Chronic kidney disease. FINDINGS: The right kidney is 12.3 cm, and the left kidney is 10.8 cm in length. There is no hydronephrosis or focal lesion. The urinary bladder appears unremarkable. IMPRESSION: Unremarkable exam. Dictated by: Dictated on workstation # [id number]
== END ==
LOC: RAD 08:31
PROVIDERS: ATTEND Nurse Practitioner
DX: N18.3 Chronic kidney disease, stage 3 (moderate) (principal)
CPT/HCPCS: 76770

== ENCOUNTER → 2017-02-16 | Outpatient (CLI) | payer MEDICARE, MEDICAID ==
--- NOTE | 2017-02-16 19:24 | Diagnostic Imaging Report ---
Examination: DEXA scan. Indication: Z13.820 SCREENING, Z79.811 Technique: Bone mineral density estimated based on dual energy radiography over the lumbar spine and femoral necks, was performed. Findings: The lumbar spine T-score is 2.2. This is 9% increase compared to 2013 exam. Lumbar spine measurements are exaggerated by superimposed degenerative sclerosis. Left femoral neck T-score is 1.6 and the right side is 1.5. This is 0.9% decreased density measurements compared to 2013 exam. IMPRESSION: Bone mineral density within normal limits. Dictated by: Dictated on workstation # [id number]
== END ==
LOC: RAD 10:33
PROVIDERS: ATTEND Family Medicine
DX: Z13.820 Encounter for screening for osteoporosis (principal); E28.39 Other primary ovarian failure; Z91.89 Other specified personal risk factors, not elsewhere classified; Z79.811 Long term (current) use of aromatase inhibitors
CPT/HCPCS: 77080

== ENCOUNTER → 2017-06-20 | Outpatient (CLI) | payer MEDICARE, MEDICAID | LOC: RAD 13:28 | PROVIDERS: ATTEND Nurse Practitioner Community Health | DX: R22.1 Localized swelling, mass and lump, neck (principal) | CPT/HCPCS: 76536 ==

== ENCOUNTER → 2017-10-24 | Outpatient (CLI) | payer MEDICARE, MEDICAID ==
--- NOTE | 2017-10-25 08:13 | Diagnostic Imaging Report ---
INDICATION: Digital mammogram bilateral screening. This study was compared to prior exam of 11/02/12. At this time, there are no current complaints. The current study was also evaluated with a Computer Aided Detection (CAD) system. FINDINGS: There are scattered fibroglandular densities in both breasts which could obscure a lesion. Overall, there does not appear to have been any significant change when compared to the prior exam. A few benign-appearing calcifications have developed in the right breast. No primary or secondary sign of malignancy is noted. IMPRESSION: 1. There is no radiographic evidence for malignancy. 2. The patient should have her annual bilateral screening mammogram on schedule in October of 2018. ACR BI-RADS Category 1: Negative. Result letter will be mailed to the patient. Note: At least 10% of breast cancer is not imaged by mammography. Dictated by: Dictated on workstation # [id number]
== END ==
LOC: RAD 09:16
PROVIDERS: ATTEND Family Medicine
DX: Z12.31 Encounter for screening mammogram for malignant neoplasm of breast (principal)
CPT/HCPCS: 77067

== ENCOUNTER → 2018-05-30 | Outpatient (CLI) | payer MEDICARE, MEDICAID ==
[~2018-05-30] MED LIST changes: +CATHETER FLUSH 10 ML SYR IV PRN; +REGADENOSON 0.4 MG/5 ML SYR (LEXISCAN) IV ONE
[2018-05-30 14:15] VITALS: BP 145/81
--- NOTE | 2018-05-30 21:19 | STRESS TEST ---
DATE OF SERVICE: 05/30/2018 LEXISCAN MYOVIEW STRESS TEST REPORT REFERRING PHYSICIAN: Dr. Colleen Deal, [facility] and Dr. Griffith. Baseline heart rate is 61, baseline blood pressure 149/68. Baseline EKG is sinus rhythm with no ischemic changes. SUMMARY: The patient was injected with 9.9 mCi of technetium-99 Myoview and the resting images were obtained. Then, the patient received 0.4 mg of Lexiscan followed by 30.5 mCi of technetium-99 Myoview. Throughout the test, there were no EKG changes. The resting and stress images were reviewed and compared in the short axis, horizontal long axis, and vertical long axis views. Review of the images showed breast attenuation with no significant ischemia or infarction. SSS is 1, SDS 1, TID value 0.96. On the gated images, the left ventricle appeared to be in normal size with normal contractility. Calculated ejection fraction 54%. CONCLUSION: 1. The patient tolerated Lexiscan well. 2. Breast attenuation with no significant ischemia or infarction on SPECT images. 3. Normal left ventricular size with normal contractility. Calculated ejection fraction 54%. 4. Overall, there is no contraindication by cardiology to proceed with the planned surgery, decision regarding the surgery, risks versus benefit is deferred to the surgeon. Job ID: [id number] DocumentID: [id number] Dictated Date: 05/30/2018 16:57:50 Washery Engineer Date: 05/30/2018 21:18:56 Dictated By: TYE WAITE MD
== END ==
LOC: CARD 12:24
PROVIDERS: ATTEND Internal Medicine Cardiovascular Disease
DX: I25.10 Atherosclerotic heart disease of native coronary artery without angina pectoris (principal); I10 Essential (primary) hypertension; E11.9 Type 2 diabetes mellitus without complications; Z87.891 Personal history of nicotine dependence
CPT/HCPCS: 78452; 93017

== ENCOUNTER → 2018-05-31 | Outpatient (CLI) | payer MEDICARE, MEDICAID ==
[~2018-05-31] MED LIST changes: -CATHETER FLUSH 10 ML SYR IV PRN; -REGADENOSON 0.4 MG/5 ML SYR (LEXISCAN) IV ONE
== END ==
LOC: CARD 08:43
PROVIDERS: ATTEND Internal Medicine Cardiovascular Disease
DX: I25.10 Atherosclerotic heart disease of native coronary artery without angina pectoris (principal); E11.9 Type 2 diabetes mellitus without complications; I10 Essential (primary) hypertension; Z87.891 Personal history of nicotine dependence; I34.0 Nonrheumatic mitral (valve) insufficiency
CPT/HCPCS: 93306

== ENCOUNTER 2018-08-16 13:33 | Outpatient (RCR) | payer MEDICARE, MEDICAID | END 2018-09-04 16:01 | disposition home or self-care (01) | PROVIDERS: ATTEND Orthopaedic Surgery | DX: Z47.89 Encounter for other orthopedic aftercare (principal); M79.644 Pain in right finger(s) ==

== ENCOUNTER → 2019-01-15 | Outpatient (CLI) | payer MEDICAID, MEDICARE ==
--- NOTE | 2019-01-15 16:10 | Diagnostic Imaging Report ---
PROCEDURE: MRI left joint lower extremity without contrast. TECHNIQUE: Multiplanar/multisequence noncontrast enhanced MRI of the left lower extremity was accomplished. INDICATION: Acute left knee pain. FINDINGS: The anterior cruciate and posterior cruciate ligaments are intact. Both the superficial and deep components of the medial collateral ligament are intact. The biceps femoris, fibulocollateral, and iliotibial band are intact. The popliteus tendon remains intact. There is loss of articular cartilage in the medial knee joint compartment. The meniscus is subluxed out of the joint space medially. There is also diffuse degenerative maceration of the medial meniscus, particularly on the posterior horn. There is some minimal underlying marrow edema in the medial femoral condyle and medial tibial plateau. There is abnormal signal intensity within the lateral meniscus as well, compatible with degenerative maceration and tear centrally. There is loss of articular cartilage in the medial knee joint compartment. There is minimal marrow edema. There is a moderate knee joint effusion. The quadriceps and patellar tendons are intact. The articular cartilage of the patella is relatively well-maintained. There are no other focal soft tissue abnormalities. 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 There is degenerative maceration of both the medial and lateral meniscus. The medial meniscus is displaced medially out of the joint space. There is some mild underlying marrow edema in both the medial and lateral knee joint compartments. Moderate knee joint effusion. No other internal derangement of the knee. Dictated by: Dictated on workstation # [id number]
== END ==
LOC: RAD 11:57
PROVIDERS: ATTEND Family Medicine
DX: M17.12 Unilateral primary osteoarthritis, left knee (principal); M62.89 Other specified disorders of muscle; M89.9 Disorder of bone, unspecified
CPT/HCPCS: 73721

== ENCOUNTER 2019-02-12 15:08 | Outpatient (RCR) | payer MEDICARE, MEDICAID | END 2019-05-07 12:19 | disposition home or self-care (01) | PROVIDERS: ATTEND Nurse Practitioner | DX: M79.644 Pain in right finger(s) (principal); Z98.890 Other specified postprocedural states ==

== ENCOUNTER → 2019-02-15 | Outpatient (CLI) | payer MEDICAID, MEDICARE ==
[~2019-02-15] MED LIST changes: +HOLD METFORMIN - RECEIVED CONTRAST 20 ML VIAL IV SCH; +IOHEXOL 350 MG/ML 100 ML (OMNIPAQUE 350) VIAL IV ONE; +NS 250 ML (IVPB) BAG IV ONE
[2019-02-15 13:07] LABS: CREATININE SERUM 0.99 MG/DL (0.60-1.30)
--- NOTE | 2019-02-15 16:06 | Diagnostic Imaging Report ---
PROCEDURE: CT abdomen and pelvis with contrast. TECHNIQUE: Multiple contiguous axial images were obtained through the abdomen and pelvis after administration of intravenous contrast. Auto Exposure Controls were utilized during the CT exam to meet ALARA standards for radiation dose reduction. INDICATION: Right lower quadrant pain and questionable right upper quadrant abdominal mass. COMPARISON: Correlation is made with prior CT from 05/12/2016. FINDINGS: The lung bases are clear. Generalized low-density throughout the liver is again noted consistent with hepatic steatosis. Tiny low densities in the dome of the right lobe of the liver are noted, too small to characterize. These most likely represent cysts. No other liver masses are seen. Gallbladder is surgically absent. There is no biliary duct dilatation. The pancreas and spleen are unremarkable. No adrenal mass is identified. Kidneys are unremarkable. There appears to be a tiny nonobstructing calculus in the lower pole of the right kidney. No hydronephrosis is seen. Aorta is heavily calcified but nonaneurysmal. Small lymph nodes in the central retroperitoneum are noted. No pathologically enlarged nodes are seen. No mesenteric lymphadenopathy is detected. There is a small fat-containing umbilical hernia. Bowel loops are normal in caliber. There is diverticulosis of the sigmoid colon but no evidence of acute diverticulitis. The appendix is unremarkable. The bladder is unremarkable. Uterus appears to be surgically absent. IMPRESSION: 1. Tiny nonobstructing right lower pole renal calculus. No hydronephrosis is seen. 2. Fat-containing umbilical hernia. 3. Diverticulosis without evidence of acute diverticulitis. Dictated by: Dictated on workstation # [id number]
== END ==
LOC: RAD 12:34
PROVIDERS: ATTEND Family Medicine
DX: K42.9 Umbilical hernia without obstruction or gangrene (principal); K57.30 Diverticulosis of large intestine without perforation or abscess without bleeding; R19.01 Right upper quadrant abdominal swelling, mass and lump; Z90.49 Acquired absence of other specified parts of digestive tract
CPT/HCPCS: 36415; 74177; 82565; 84520

== ENCOUNTER → 2019-04-03 | Outpatient (CLI) | payer MEDICARE ==
[~2019-04-03] MED LIST changes: -HOLD METFORMIN - RECEIVED CONTRAST 20 ML VIAL IV SCH; -IOHEXOL 350 MG/ML 100 ML (OMNIPAQUE 350) VIAL IV ONE; -NS 250 ML (IVPB) BAG IV ONE
--- NOTE | 2019-04-03 11:05 | Diagnostic Imaging Report ---
INDICATION: Palpable lump in the lateral aspect of the right mid thigh. TECHNIQUE: Sonographic interrogation of the area of lump was performed. FINDINGS: There is an isoechoic solid-appearing nodule just below the skin surface measuring 1.2 x 0.9 x 1.5 cm. No internal vascularity is identified. IMPRESSION: Solid nonvascular circumscribed nodule, as described. This could potentially represent a lipoma. Close clinical followup is recommended. If this demonstrates some change, MRI would be recommended for further evaluation. Dictated by: Dictated on workstation # [id number]
== END ==
LOC: RAD 09:35
PROVIDERS: ATTEND Family Medicine
DX: R22.41 Localized swelling, mass and lump, right lower limb (principal)
CPT/HCPCS: 76881

== ENCOUNTER → 2020-06-30 | Outpatient (CLI) | payer MEDICARE ==
--- NOTE | 2020-06-30 10:09 | Diagnostic Imaging Report ---
EXAMINATION: CT Lung Screening. INDICATION: History of tobacco use with a 45 pack year history. Quit smoking 5 years ago. History of ovarian and skin cancer. TECHNIQUE: Noncontrast, low-dose CT imaging performed according to lung cancer screening protocol. Auto Exposure Controls were utilized during the CT exam to meet ALARA standards for radiation dose reduction. COMPARISON: 11/15/2016 and 05/12/2016. FINDINGS: HEART/MEDIASTINUM: The heart size is normal. There is, however, dense coronary artery calcification present. The thoracic aorta is relatively normal in contour with scattered wall calcification. Small hiatal hernia. No suggestion for pathologically enlarged mediastinal lymph nodes on limited, noncontrast imaging. LUNGS/MEASURED PULMONARY NODULES: There is no consolidating infiltrate. There are a few scattered micronodules measuring less than 5 mm and overall appearing unchanged. On image 142/series 2 and image 55/series 602, there is a solid nodule in the central right lower lobe with a maximum size of 7 mm which appears endobronchial and perhaps very slightly more prominent from the prior study. OTHER: None. IMPRESSION: 1. Scattered small predominantly sub 5 mm pulmonary nodules, overall generally stable. 2. The dominant nodule remains in the right lower lobe and appears to be endobronchial. This is stable to perhaps minimally increased in size. There is, however, a variation in slice selection and technique and the possibility of slight interval growth is not excluded. Attention at followup is recommended. 3. Prominent coronary artery calcification. LUNG-RADS CATEGORY: 4 A-S LUNG SCREENING MANAGEMENT/RECOMMENDATIONS: 3 month follow-up low-dose CT. Notes: Please note that this is a low dose CT examination, intended for lung cancer screening of high risk patients. As a technical result, the examination is limited in diagnostic quality compared to a conventional CT examination of the chest. Dictated by: Dictated on workstation # [id number]
== END ==
LOC: RAD 09:15
PROVIDERS: ATTEND Family Medicine
DX: Z12.2 Encounter for screening for malignant neoplasm of respiratory organs (principal); I25.10 Atherosclerotic heart disease of native coronary artery without angina pectoris; R91.8 Other nonspecific abnormal finding of lung field; Z87.891 Personal history of nicotine dependence

== ENCOUNTER → 2020-07-17 | Outpatient (CLI) | payer MEDICARE ==
[~2020-07-17] VITALS: Ht 167.7 cm; Wt 92.3 kg
[~2020-07-17] MED LIST changes: +LIDOCAINE 1% INJ 20 ML 20 ML VIAL INJ ONE; +LIDOCAINE 1% INJ 20 ML 20 ML VIAL ONE
--- NOTE | 2020-07-17 09:42 | Diagnostic Imaging Report ---
Stereotactic biopsy right breast. Indication: Abnormal calcifications The diagnostic mammogram performed at [facility] on 06/30/2020 noted a group of pleomorphic calcifications in the upper outer quadrant of the right breast at posterior depth. Following aseptic preparation skin and administration of local anesthesia the area in question was biopsied using the stereotactic device. Multiple samples were obtained. The specimen radiograph does show that the specimens do contain a number of the calcifications seen on the mammogram. Subsequently clip was inserted into the biopsy site. The postprocedure mammogram performed at a separate workstation reveals that the clip seems to be in the position of the previously described calcifications, that most of the calcifications noted on the prior exam had been removed. The patient tolerated the procedure well and was dismissed in good condition. Impression: There has been a successful stereotactic biopsy of the right breast. A final pathology report is pending. Dictated by: Dictated on workstation # [id number]
== END ==
LOC: RAD 08:30
PROVIDERS: ATTEND Family Medicine
DX: R92.1 Mammographic calcification found on diagnostic imaging of breast (principal)
CPT/HCPCS: 19081; A4648

== ENCOUNTER 2020-07-29 13:24 | Outpatient (RCR) | payer MEDICARE ==
[~2020-07-29 13:24] MED LIST changes: -LIDOCAINE 1% INJ 20 ML 20 ML VIAL INJ ONE; -LIDOCAINE 1% INJ 20 ML 20 ML VIAL ONE
[2020-08-21] MEDS ORDERED: AMLO-251 PO (11:56)
[2020-08-21] MEDS ORDERED: MULT-1136 PO (11:56)
[2020-08-21] MEDS ORDERED: METF-397 PO (11:56)
[2020-08-21] MEDS ORDERED: ANAS1TAB50 PO (11:56)
[2020-08-21] MEDS ORDERED: ATEN100T PO (11:56)
[2020-08-21] MEDS ORDERED: FLUO20CA42 PO (11:56)
[2020-08-21] MEDS ORDERED: LISI40TA PO (11:56)
[2020-08-21] MEDS ORDERED: ATOR20TA66 PO (11:56)
[2020-08-21] MEDS ORDERED: PANT40TA52 PO (11:56)
[2020-08-21] MEDS ORDERED: CALC-794 PO (11:56)
[2020-08-27] MEDS ORDERED: OXYC1TAB16 PO (08:44)
== END 2020-09-25 08:15 | disposition home or self-care (01) ==
LOC: ONC 13:24
PROVIDERS: ATTEND Internal Medicine Hematology & Oncology
DX: D05.91 Unspecified type of carcinoma in situ of right breast (principal); I25.10 Atherosclerotic heart disease of native coronary artery without angina pectoris; J44.9 Chronic obstructive pulmonary disease, unspecified; Z85.43 Personal history of malignant neoplasm of ovary; Z90.710 Acquired absence of both cervix and uterus; Z95.5 Presence of coronary angioplasty implant and graft; Z87.891 Personal history of nicotine dependence; Z90.49 Acquired absence of other specified parts of digestive tract; Z90.89 Acquired absence of other organs
CPT/HCPCS: 80053; 85025; G0463; 99214

== ENCOUNTER → 2020-08-12 | Outpatient (CLI) | payer MEDICARE ==
[~2020-08-12] VITALS: Ht 167 cm; Wt 95.0 kg
[~2020-08-12] MED LIST changes: +REGADENOSON 0.4 MG/5 ML SYR (LEXISCAN) IV ONE
[2020-08-12] MEDS: CATHETER FLUSH 10 ML SYR IV PRN ×2 (11:24→12:45)
[2020-08-12 12:44] VITALS: BP 167/99
--- NOTE | 2020-08-12 15:27 | Cardiology Stress Test Report ---
Stress Test Report Date of Procedure/Referring: Date of Procedure: Aug 12, 2020 PCP Shanique Tran Admitting Physician Colleen Deal MD Indications: CAD Baseline Heart Rate: 70 Baseline Blood Pressure: Blood Pressure Systolic: 167 Blood Pressure Diastolic: 99 Baseline Vitals Vital Signs Date Time Temp Pulse Resp B/P (MAP) Pulse Ox O2 Delivery O2 Flow Rate FiO2 08/12/20 12:44 70 16 167/99 (121) 98 Room Air Baseline EKG: Baseline EKG: normal sinus rhythm Summary After explaining the procedure to the patient, she signed a consent and then brought to the stress nuclear laboratory. Patient received 0.4 mg Lexiscan for stress test, ECG, heart rate and blood pressure were monitored continuously. Resting and stress dose of radio tracer were injected, imaging was acquired and reviewed in short axis, horizontal long axis and vertical long axis views. TID: 1.05 SSS: 3 SDS: 3 EF: 55 1. Patient tolerated Lexiscan well 2. Breast attenuation with typical female pattern, no sig ischemia or infarction on SPECT images 3. Normal left ventricular size, EF 55 percent TYE WAITE MD Aug 12, 2020 15:27
== END ==
LOC: CARD 11:30
PROVIDERS: ATTEND Physician Assistant
DX: I25.10 Atherosclerotic heart disease of native coronary artery without angina pectoris (principal); N64.89 Other specified disorders of breast
CPT/HCPCS: 78452; 93017; 93306; A9502

== ENCOUNTER 2020-08-25 05:34 | Outpatient (RCR) | payer MEDICARE ==
[~2020-08-25] VITALS: Ht 167 cm; Wt 95.4 kg
[~2020-08-25 05:34] MED LIST changes: +AMLO-251 PO; +ANAS1TAB50 PO; +ATEN100T PO; +ATOR20TA66 PO; +CALC-794 PO; +FLUO20CA42 PO; +LISI40TA PO; +METF-397 PO; +MULT-1136 PO; +PANT40TA52 PO; -REGADENOSON 0.4 MG/5 ML SYR (LEXISCAN) IV ONE
== END 2020-08-25 13:09 | disposition home or self-care (01) ==
LOC: PREOP 05:34
PROVIDERS: ATTEND Surgery
DX: Z01.812 Encounter for preprocedural laboratory examination (principal); C50.911 Malignant neoplasm of unspecified site of right female breast; Z20.828 Contact with and (suspected) exposure to other viral communicable diseases
CPT/HCPCS: 87635

== ENCOUNTER 2020-08-27 06:40 | Day surgery (SDC) | payer MEDICARE ==
[~2020-08-27] VITALS: Ht 167 cm; Wt 95.4 kg
[2020-08-27] VITALS (11 sets, daily range): BP systolic 124–158; BP diastolic 61–92
[2020-08-27] MEDS ORDERED: ceFAZolin 2 GM IV Premixed 50 ML IV ONE (07:30)
[2020-08-27] MEDS ORDERED: CATHETER FLUSH 10 ML SYR IV PRN (07:30)
[2020-08-27] MEDS: LACTATED RINGERS 1,000 ML IV PRN ×2 (07:47→13:09)
--- NOTE | 2020-08-27 08:30 | Progress Note-Pre Operative ---
Pre-Operative Progress Note H&P Reviewed The H&P was reviewed, patient examined and no changes noted. Date Seen by Provider: Aug 27, 2020 Time Seen by Provider: 08:30 Date H&P Reviewed: Aug 27, 2020 Time H&P Reviewed: 08:25 Pre-Operative Diagnosis: Right Breast Cancer MOHAMUD ELLIS APRN Aug 27, 2020 08:30
[2020-08-27] MEDS ORDERED: OXYC1TAB16 PO (08:44)
--- NOTE | 2020-08-27 08:45 | Discharge Inst-Surgical ---
D/C Lap Instructions-KIDO Reconcile Patient Problems Problems Reviewed?: Yes New, Converted, or Re-Newed RX: RX on Chart Follow Up Appt in 2 weeks Activity as tolerated No driving for 24 hours No driving while on pain medications Incentive Spirometry use every 2 hours while awake Regular Diet Symptoms to Report: Fever over 101 degree F, Nausea/Vomiting Infection Signs and Symptoms to report: Increased redness, Foul odor of wound, Increased drainage Bathing instructions: May shower Operative Area Clean/Dry; Keep incision clean/dry If any problems/questions: Contact your physician or go to Emergency Room MHOAMUD ELLIS APRN Aug 27, 2020 08:44
--- NOTE | 2020-08-27 10:21 | Diagnostic Imaging Report ---
EXAM: Lymphoscintigraphy INDICATION: Breast cancer Following aseptic preparation of the skin, 1.06 mCi of filtered technetium 99 sulfur colloid was injected in 4 divided doses into the periareolar region. There is uptake about the periareolar region and there are also several focal areas of increased uptake in the right axilla. The skin over these areas was marked. IMPRESSION: There has been a successful lymphoscintigraphy procedure. Dictated by: Dictated on workstation # [id number]
[2020-08-27] MEDS ORDERED: LIDOCAINE/EPI 1%-1:100,000 (XYLOCAINE) 20ML ONE (10:35)
[2020-08-27] MEDS ORDERED: METHYLENE BLUE 0.5% (PROVAYBLUE) 50 mg/10 ml vial IV ONE (10:35)
[2020-08-27] MEDS ORDERED: MIDAZOLAM 2 MG/2 ML (VERSED) VIAL ONE (11:47)
[2020-08-27] MEDS ORDERED: fentaNYL INJECTION 100 MCG/2 ML AMP ONE ×3 (11:51→15:12)
[2020-08-27] MEDS ORDERED: SEVOFLURANE (ULTANE) 15 ML INHAL SOLN ONE ×12 (12:24→14:52)
[2020-08-27] MEDS ORDERED: LIDOCAINE PF 2% 5 ML (XYLOCAINE) VIAL ONE (12:24)
[2020-08-27] MEDS ORDERED: proPOfol 200 MG/20 ML (DIPRIVAN) VIAL IV ONE (12:24)
[2020-08-27] MEDS ORDERED: ONDANSETRON 4 MG/2 ML (SDV) Z0FRAN ONE (12:24)
[2020-08-27] MEDS ORDERED: LIDOCAINE/EPI 1%-1:200,000 (XYLOCAINE) 30 ML VIAL ONE (12:57)
--- NOTE | 2020-08-27 13:43 | Progress Note-Post Operative ---
Post-Operative Progess Note Surgeon (s)/Lead Housekeeper (s) Surgeon EDMUND RUCKER MD Lead Housekeeper: antwan agosto AIR EXPORT AGENT Pre-Operative Diagnosis Right Breast extensive comedo DCIS Post-Operative Diagnosis same Procedure & Operative Findings Date of Procedure 08/27/20 Procedure Performed/Findings right breast sentinel node bx. simple mastectomy. Anesthesia Type general LMA Estimated Blood Loss Estimated blood loss (mL): minimal Specimens/Packing Specimens Removed right sentinel node, right breast. EDMUND RUCKER MD Aug 27, 2020 13:43
[2020-08-27] MEDS ORDERED: NS IV 1000 ML 1,000 ML IV SCH (13:45)
[2020-08-27] MEDS ORDERED: ONDANSETRON 4 MG/2 ML (SDV) Z0FRAN IV PRN (13:45)
[2020-08-27] MEDS ORDERED: 1/2 NS W/KCL 20 MEQ/L 1,000 ML IV SCH (13:45)
[2020-08-27] MEDS ORDERED: oxyCODONE 5 MG/5 ML ORAL SOLN (roxiCODONE) 5 ML UDC PO PRN (13:45)
[2020-08-27] MEDS ORDERED: fentaNYL INJECTION 1,000 MCG in NS (IVPB) 80 ML IV SCH (13:45)
[2020-08-27] MEDS ORDERED: diphenhydrAMINE 50 MG/ML INJ (BENADRYL) IV PRN (13:45)
[2020-08-27] MEDS ORDERED: diphenhydrAMINE 50 MG/ML INJ (BENADRYL) IVP PRN (13:45)
[2020-08-27] MEDS ORDERED: NALOXONE 0.4 MG/ML 1 ML (NARCAN) VIAL IV PRN (13:45)
[2020-08-27] MEDS ORDERED: METOCLOPRAMIDE INJ 10 MG/2 ML (REGLAN) IV PRN (13:45)
[2020-08-27] MEDS ORDERED: RT-ALBUTEROL SULF 2.5 MG/3 ML PRE-MIX VIAL INH SCH (14:00)
[2020-08-27] MEDS ORDERED: BUPIVACAINE 0.25% 30 ML (SENSORCAINE) VIAL ONE (14:52)
[2020-08-27] MEDS ORDERED: fentaNYL INJECTION 100 MCG/2 ML AMP IVP ONE (15:15)
[2020-08-27] MEDS ORDERED: MEPERIDINE (DEMEROL) INJ 50 MG/ML IVP ONE (15:15)
[2020-08-27] MEDS ORDERED: ONDANSETRON 4 MG/2 ML (SDV) Z0FRAN IVP PRN ×2 (15:15→15:30)
[2020-08-27] MEDS ORDERED: METOCLOPRAMIDE INJ 10 MG/2 ML (REGLAN) IVP PRN (15:30)
[2020-08-27] MEDS ORDERED: oxyCODONE/APAP 7.5-325 MG (PERCOCET 7.5) TABLET PO PRN (16:15)
[2020-08-27] MEDS: NS IV 1000 ML 1,000 ML IV SCH (16:37)
--- NOTE | 2020-08-27 17:03 | NUR ---
RACHNA GEORGE S admitted to room 410-1, with an admitting diagnosis of right mastectomy, on from [facility], accompanied by recovery nurse .RACHNA GEORGE introduced to surroundings, call light, bed controls, phone, TV, temperature control, lights, meal times, smoking policy, visitor policy, side rail policy, bathrooms and showers. Patient Rights given to patient in the handbook. RACHNA GEORGE verbalizes understanding that [facility] is not responsible for the loss or damage to any personal effects or valuables that are kept in the patients posession during their hospitalization. The following Patient Care Plans and discharge were discussed with the patient. RACHNA GEORGE verbalizes understanding of Interdisciplinary Patient Education. Patient was informed about the Rapid Response Team and its purpose.
[2020-08-27] MEDS: ceFAZolin 2 GM IV Premixed 50 ML IV SCH (18:52)
[2020-08-27] MEDS ORDERED: fentaNYL INJECTION 100 MCG/2 ML AMP IVP PRN (19:30)
--- NOTE | 2020-08-27 20:37 | OPERATIVE REPORT ---
DATE OF SERVICE: 08/27/2020 ATTENDING PRIMARY CARE PHYSICIAN: Dr. Colleen Deal. PREOPERATIVE DIAGNOSIS: Multifocal ductal carcinoma in situ, comedo type of the right breast. POSTOPERATIVE DIAGNOSIS: Multifocal ductal carcinoma in situ, comedo type of the right breast. PROCEDURE: Right breast sentinel node biopsy and simple mastectomy. SURGEON: Myrna Almonte MD. ASP DEVELOPER: Philip Perdomo APRN. ANESTHESIA: General laryngeal mask airway as well as a pectoral nerve block. ESTIMATED BLOOD LOSS: 150 mL. FINDINGS: [place] lymph node #1 negative for malignancy with the sentinel node count at 11,400 and the background count of 84. DISPOSITION: The patient tolerated the procedure well. INDICATIONS: The patient is a 69-year-old female who was referred over to us for biopsy proven multifocal ductal carcinoma in situ of the comedo type variety of the right breast. She is considered high risk due to a history of ovarian cancer and was currently on anastrozole and did develop a high-grade ductal carcinoma in situ. She had a mammogram performed and the lesion was identified. She underwent a sterotactic biopsy of the right breast, which did come back as a high-grade comedo carcinoma in situ, comedo type with associated adjacent microcalcifications. This was estrogen receptor positive, progesterone receptor negative. She was referred over to us for right mastectomy due to her increased risk as well as the type and distribution of her multifocal disease while on anastrozole. We will proceed with a sentinel node biopsy for staging purposes as well as a simple mastectomy. DESCRIPTION OF PROCEDURE: The patient was brought to the operating room, laid supine on the table. After adequate IV pain and sedative medications and general laryngeal mask airway intubation, the chest, neck and right upper extremity were prepped and draped in standard surgical fashion. We first proceeded with the sentinel lymph node biopsy after subdermal injection of isosulfan blue of the nipple areolar complex in 4 quadrants. Before the procedure, the patient also underwent lymphoscintigraphy. A vertical skin incision was then made along the anterior axillary line using a 15 blade. Subcutaneous tissue was then dissected down using electrocautery. We then used electrocautery as well as blunt dissection to identify the sentinel lymph node, which was stained blue and the tracer count at 11,400 and the background of 84 consistent with a positive sentinel lymph node. This was sent for frozen section and negative for malignancy. We then proceeded with the simple mastectomy and the nipple areolar complex was marked off using a marking pen in an elliptical shape. We then proceeded with an injection of 1% lidocaine with epinephrine. An elliptical shape skin incision was made encompassing the nipple areolar complex was then made using a 10 blade. We then proceeded with creation of our superior flap, dissecting the breast tissue until we reached the clavicle as the superior margin. We then proceeded with inferior flap dissection until the insertion of the rectus abdominis was identified. We then proceeded with medial to lateral dissection starting at the sternum and our inferior margin being the pectoralis major muscle and proceeded with our lateral dissection to the axillary tail of [place] in the axilla and the latissimus dorsi reached. Good hemostasis was observed. The wound was then copiously irrigated with sterile water, suctioned out. Two 19-Swedish Pawan-Holm drains were then placed and exited towards the lateral portion of the breast and sutured to the skin using 3-0 nylon sutures. Both incisions, the subcutaneous tissue was then reapproximated using 3-0 Vicryl interrupted sutures and the skin was closed using 4-0 Monocryl running subcuticular suture. Wound was then cleaned and covered with Dermabond. The fluff gauze followed by a 6-inch Carl wrap was then placed along the chest wall. The patient tolerated the procedure well. We will admit her 23-hour observation and start IV as well as oral pain medication as well as a clear liquid diet and advance as tolerated. Once she is tolerating clears, has good pain control with oral pain medications, ambulating well, we will discharge her home and she will be instructed to do no heavy lifting or exertion for the next two weeks. Job ID: [id number] DocumentID: [id number] Dictated Date: 08/27/2020 14:00:24 Neonatal Surgeon Date: 08/27/2020 20:37:10 Dictated By: MD BRODIE OSULLIVAN
[2020-08-27] MEDS: ENOXAPARIN 30 MG/0.3 ML (LOVENOX) SYR SC SCH (21:07)
[2020-08-28] MEDS: oxyCODONE/APAP 7.5-325 MG (PERCOCET 7.5) TABLET PO PRN ×2 (00:24→07:27)
[2020-08-28] MEDS: ceFAZolin 2 GM IV Premixed 50 ML IV SCH ×2 (03:00→11:22)
[2020-08-28] MEDS: NS IV 1000 ML 1,000 ML IV SCH ×2 (03:18→06:01)
[2020-08-28 04:59] VITALS: BP 123/66
[2020-08-28 05:00] LABS: HEMOGLOBIN 9.7 g/dL (11.5-16.0); MEAN PLATELET VOLUME 10.5 fL (9.0-12.2); WHITE BLOOD COUNT 9.8 10^3/uL (4.3-11.0)
--- NOTE | 2020-08-28 06:51 | Anesthesia-General Post-Op ---
General Patient Condition Mental Status/LOC: Same as Preop Cardiovascular: Satisfactory Nausea/Vomiting: Absent Respiratory: Satisfactory Pain: Controlled Complications: Absent Post Op Complications Complications None Follow Up Care/Instructions Patient Instructions None needed. Anesthesia/Patient Condition Patient Condition Patient is doing well, no complaints, stable vital signs, no apparent adverse anesthesia problems. No complications reported per nursing. D/C home per [facility] Criteria: Yes LANI READ CRNA Aug 28, 2020 06:51
[2020-08-28] MEDS: ENOXAPARIN 30 MG/0.3 ML (LOVENOX) SYR SC SCH (07:28)
[2020-08-28 08:00] VITALS: BP 134/77
[2020-08-28] MEDS ORDERED: PANTOPRAZOLE 40 MG (PROTONIX) TAB PO SCH (09:00)
[2020-08-28] MEDS ORDERED: SENNA W/DOCUSATE (SENOKOT S) TABLET PO SCH (09:00)
[2020-08-28] MEDS ORDERED: PANTOPRAZOLE 40 MG (PROTONIX) VIAL IV SCH ×2 (09:00)
--- NOTE | 2020-08-28 10:12 | Progress Note ---
Subjective Date Seen by a Provider: Aug 28, 2020 Time Seen by a Provider: 10:00 Subjective/Events-last exam doing well. pain controlled. ambulating well. no fever/chills. Objective Exam Vital Signs Date Time Temp Pulse Resp B/P (MAP) Pulse Ox O2 Delivery O2 Flow Rate FiO2 08/28/20 08:00 36.6 83 20 134/77 (96) 97 Nasal Cannula 2.00 08/28/20 04:59 36.1 77 18 123/66 (85) 91 Nasal Cannula 2.00 08/27/20 23:57 37.1 80 16 124/61 (82) 91 Nasal Cannula 2.00 08/27/20 21:15 Nasal Cannula 3.00 08/27/20 19:44 37.0 82 18 141/71 (94) 91 Room Air 08/27/20 19:19 Room Air 08/27/20 16:00 37.0 79 18 147/69 (95) 94 Nasal Cannula 3.00 08/27/20 16:00 Nasal Cannula 3 08/27/20 16:00 Nasal Cannula 3.00 08/27/20 15:50 36.5 12 141/79 (99) 92 Nasal Cannula 3 08/27/20 15:40 14 145/82 (103) 94 Nasal Cannula 3 08/27/20 15:30 14 148/78 (101) 94 OxyMask 10 08/27/20 15:30 OxyMask 10 08/27/20 15:20 15 158/73 (101) 95 OxyMask 10 08/27/20 15:10 18 139/89 (106) 94 OxyMask 10 08/27/20 15:00 18 157/90 (112) 96 OxyMask 10 08/27/20 14:55 36.6 12 155/92 (113) 98 OxyMask 10 08/27/20 14:55 OxyMask 10 I & O 08/28/20 07:00 Intake Total 2900 ml Output Total 565 ml Balance 2335 ml Capillary Refill : Less Than 3 Seconds General Appearance: No Apparent Distress HEENT: PERRL/EOMI Neck: Full Range of Motion Respiratory: Chest Non Tender, Lungs Clear, Normal Breath Sounds Cardiovascular: Regular Rate, Rhythm Gastrointestinal: normal bowel sounds, non tender, soft Extremity: Normal Capillary Refill Neurologic/Psychiatric: Alert, Oriented x3 Skin: Normal Color, Other (wound clean/dry) Lymphatic: No Adenopathy Results Lab Laboratory Tests 08/28/20 04:45: White Blood Count 9.8, Red Blood Count 3.16L, Hemoglobin 9.7L, Hematocrit 30L, Mean Corpuscular Volume 95, Mean Corpuscular Hemoglobin 31, Mean Corpuscular Hemoglobin Concent 32, Red Cell Distribution Width 14.3, Platelet Count 141, Mean Platelet Volume 10.5 Microbiology 08/27/20 MRSA Screen - Final, Complete MRSA not isolated Assessment/Plan Assessment/Plan Assess & Plan/Chief Complaint s/p right breast mastectomy. ambulate. diet as prasanth. drain care instructions. Clinical Quality Measures DVT/VTE Risk/Contraindication: Risk Factor Score Per Nursin RFS Level Per Nursing on Admit: 4+=Very High EDMUND RUCKER MD Aug 28, 2020 10:11
[2020-08-28 12:00] VITALS: BP 138/79
[2020-08-28 14:51] VITALS: BP 138/79
--- NOTE | 2020-08-28 14:59 | NUR ---
RD ASSESSMENT PMHx: HTN; hypercholesterolemia; DM; CAD; GERD; CA(skin,breast); PT INTERACTION: Pt was awake and pleasant during nutrition assessment. Pt states current appetite is very good. Note PO intake 75% x1meal, per chart review. Pt states trying to follow a low-CHO, low-fat diet at home, and has no issues with chewing/swallowing food. Pt states some recent issues with nausea, but not vomiting, constipation, or diarrhea. Note last BM was 08/27, and pt currently on bowel regimen of senna qd, per chart review. Pt states recent wt gain "probably," but was unsure of amount/timeframe. Note recent 1# wt gain x2w, per chart review. Pt states current DM management is "very good. My doctor recently cut my prescriptions down." Note unable to determine recent HbA1c, per chart review. ABNORMAL NUTRITION-RELATED LAB VALUES LOW: HIGH: glu 110; Est. kcal needs: 3347-0038 kcal | 15-18 kcal/kg Est. Pro needs: 76-95 g Pro | 0.8-1.0 g Pro/kg PES STATEMENT: Given current appetite and PO intake, no nutrition diagnosis at this time (NO-1.1). INTERVENTION: Note pt currently on Regular diet. Would recommend switching to consistent CHO diet, as pt has hx of DM. Offered diet education on DM management, but pt declined at this time. May attempt to offer again prior to discharge. Will continue to follow and reassess as pt needs, intake, and status change. William HUNTLEY, MS RD LD [phone] cell
--- NOTE | 2020-08-28 15:22 | NUR ---
Met with pt prior to discharge and discussed continued care needs. She did agree to a referral with the [facility] volunteer and faxed referral to the [employer] [facility] [employer]. She lives alone but wll be assisted by her daughter who lives in [place].
== END 2020-08-28 14:52 ==
LOC: SDC 06:40 → 4TH 16:02 → SDC 08-28 14:52
PROVIDERS: ATTEND Surgery
DX: C50.411 Malignant neoplasm of upper-outer quadrant of right female breast (principal); I10 Essential (primary) hypertension; I25.10 Atherosclerotic heart disease of native coronary artery without angina pectoris; F32.9 Major depressive disorder, single episode, unspecified; K21.9 Gastro-esophageal reflux disease without esophagitis; E11.9 Type 2 diabetes mellitus without complications; E66.9 Obesity, unspecified; Z68.34 Body mass index [BMI] 34.0-34.9, adult; Z79.84 Long term (current) use of oral hypoglycemic drugs; Z79.899 Other long term (current) drug therapy; Z88.5 Allergy status to narcotic agent; Z85.3 Personal history of malignant neoplasm of breast; Z85.828 Personal history of other malignant neoplasm of skin
CPT/HCPCS: 19301; 38525; 78195; 82962; 85027; 87081; 88307; 88331; 88341; 88342; 94664; A9541; 36415

== ENCOUNTER → 2020-10-06 | Outpatient (CLI) | payer MEDICARE ==
[~2020-10-06] MED LIST changes: +OXYC1TAB16 PO
--- NOTE | 2020-10-06 12:51 | Diagnostic Imaging Report ---
PROCEDURE: CT chest without contrast. TECHNIQUE: Multiple contiguous axial images were obtained through the chest without the use of intravenous contrast. Auto Exposure Controls were utilized during the CT exam to meet ALARA standards for radiation dose reduction. INDICATION: History of smoking. Follow-up pulmonary nodules. COMPARISON: 11/15/2016 and 06/30/2020. FINDINGS: Multiple micronodules are again identified scattered throughout both lungs. The majority of these measure less than 6 mm in diameter. Dominant micronodule is again identified within the central margins of the right lower lobe and may be endobronchial in location. It measures 6-7 mm on today's exam. This is not significantly changed when compared to 11/15/2016. No new suspicious pulmonary nodule or mass is seen. There is no focal consolidation, large effusion, nor pneumothorax. Cardiomediastinal structures show normal heart size. There is advanced calcified coronary atherosclerosis. Note is also made of moderate scattered calcified aortic atherosclerotic disease. There is no large pericardial effusion. No pathologically enlarged or morphologically abnormal adenopathy is seen within the mediastinum, arley, or axilla. Patient is status post previous right mastectomy. There is associated skin thickening. Osseous structures show no acute abnormalities. Included portions of the upper abdomen show hypodense appearance of the hepatic parenchyma consistent with hepatic steatosis. Multiple nonobstructive renal calculi are also present bilaterally. IMPRESSION: 1. Redemonstration of multiple pulmonary micronodules. Again, these are stable when compared to 11/15/2016. Continued follow-up with annual low-dose CT of the chest is recommended. 2. Advanced calcified coronary and moderate scattered calcified aortic atherosclerosis. 3. Hepatic steatosis. 4. Multiple nonobstructive renal calculi. 5. Interval right mastectomy. Dictated by: Dictated on workstation # [id number]
== END ==
LOC: RAD 10:36
PROVIDERS: ATTEND Family Medicine
DX: R91.8 Other nonspecific abnormal finding of lung field (principal); I25.84 Coronary atherosclerosis due to calcified coronary lesion; K76.0 Fatty (change of) liver, not elsewhere classified; N20.0 Calculus of kidney; Z87.891 Personal history of nicotine dependence; Z90.11 Acquired absence of right breast and nipple
CPT/HCPCS: 71250

== ENCOUNTER → 2020-10-21 | Outpatient (CLI) | payer MEDICARE ==
--- NOTE | 2020-10-21 11:06 | Diagnostic Imaging Report ---
INDICATION: Patient reports bump on anterior shoulder. No history of trauma. FINDINGS: The glenohumeral joint is in good alignment. The articulating surfaces are smooth. The AC joint shows good alignment with mild hypertrophic change. There are no fractures. No soft tissue calcifications are demonstrated. IMPRESSION: Mild degenerative changes of the right AC joint; otherwise, negative. Dictated by: Dictated on workstation # [id number]
== END ==
LOC: RAD 10:32
PROVIDERS: ATTEND Surgery
DX: M19.011 Primary osteoarthritis, right shoulder (principal)
CPT/HCPCS: 73030

== ENCOUNTER 2020-11-09 10:31 | Outpatient (RCR) | payer MEDICARE ==
[~2020-11-09 10:31] MED LIST changes: -LISI40TA PO; +LISI40TA9 PO
== END 2021-02-07 | disposition home or self-care (01) ==
LOC: ONC 10:31
PROVIDERS: ATTEND Internal Medicine Hematology & Oncology
DX: D05.11 Intraductal carcinoma in situ of right breast (principal); I25.10 Atherosclerotic heart disease of native coronary artery without angina pectoris; E11.9 Type 2 diabetes mellitus without complications; I10 Essential (primary) hypertension; J44.9 Chronic obstructive pulmonary disease, unspecified; E78.2 Mixed hyperlipidemia; Z85.43 Personal history of malignant neoplasm of ovary; Z90.710 Acquired absence of both cervix and uterus; Z95.5 Presence of coronary angioplasty implant and graft; Z87.891 Personal history of nicotine dependence; Z90.49 Acquired absence of other specified parts of digestive tract; Z90.89 Acquired absence of other organs; Z90.11 Acquired absence of right breast and nipple
CPT/HCPCS: 99213

== ENCOUNTER 2021-01-18 12:41 | Outpatient (RCR) | payer MEDICARE | END 2021-03-18 10:34 | disposition home or self-care (01) | PROVIDERS: ATTEND Family Medicine | DX: H81.11 Benign paroxysmal vertigo, right ear (principal) ==

== ENCOUNTER 2021-04-26 10:19 | Outpatient (RCR) | payer MEDICARE ==
[2021-04-26 10:37] LABS: BASOPHILS % (AUTO) 0 % (0-10); EOSINOPHILS % (AUTO) 0 % (0-10); HEMATOCRIT 38 % (35-52); HEMOGLOBIN 12.2 g/dL (11.5-16.0); LYMPHOCYTES # (AUTO) 1.6 10^3/uL (1.0-4.0); LYMPHOCYTES % (AUTO) 21 % (12-44); MEAN CORPUSCULAR HEMOGLOBIN 31 pg (25-34); MEAN CORPUSCULAR HGB CONC 32 g/dL (32-36); MEAN CORPUSCULAR VOLUME 95 fL (80-99); MEAN PLATELET VOLUME 10.2 fL (9.0-12.2); MONOCYTES # (AUTO) 0.7 10^3/uL (0.0-1.0); MONOCYTES % (AUTO) 9 % (0-12); NEUTROPHILS # (AUTO) 5.4 10^3/uL (1.8-7.8); NEUTROPHILS % (AUTO) 69 % (42-75); PLATELET COUNT 184 10^3/uL (130-400); WHITE BLOOD COUNT 7.8 10^3/uL (4.3-11.0)
[2021-04-26 10:53] LABS: BILIRUBIN,TOTAL 0.5 MG/DL (0.1-1.0); CALCIUM 9.6 MG/DL (8.5-10.1); CREATININE SERUM 1.22 MG/DL (0.60-1.30); POTASSIUM 4.2 MMOL/L (3.6-5.0); TOTAL PROTEIN 7.6 GM/DL (6.4-8.2)
== END 2021-07-25 | disposition home or self-care (01) ==
LOC: ONC 10:19
PROVIDERS: ATTEND Internal Medicine Hematology & Oncology
DX: D05.11 Intraductal carcinoma in situ of right breast (principal); I25.10 Atherosclerotic heart disease of native coronary artery without angina pectoris; J44.9 Chronic obstructive pulmonary disease, unspecified; Z90.710 Acquired absence of both cervix and uterus; Z90.49 Acquired absence of other specified parts of digestive tract; Z90.89 Acquired absence of other organs; Z87.891 Personal history of nicotine dependence; Z90.11 Acquired absence of right breast and nipple; Z79.899 Other long term (current) drug therapy
CPT/HCPCS: 80053; 84443; 85025; G0463; 99213

== ENCOUNTER → 2021-07-19 | Outpatient (CLI) | payer MEDICARE ==
[~2021-07-19] VITALS: Ht 167.6 cm; Wt 101.4 kg
[~2021-07-19] MED LIST changes: +LIDOCAINE 1% INJ 20 ML 20 ML VIAL INJ ONE
--- NOTE | 2021-07-19 14:35 | Diagnostic Imaging Report ---
INDICATION: Right breast carcinoma. Patient has enlarged right axillary lymph node. PROCEDURE: The patient presents for ultrasound-guided biopsy. The patient was brought to the procedure room, placed on the table in the supine position. Ultrasound imaging of the right axilla was performed to evaluate appropriate entry site. The skin of the right axilla was prepped and draped in the usual sterile fashion. A small amount of 1% lidocaine was utilized for local anesthesia. A total of 3 passes were made into the right axillary node utilizing a 14-gauge Achieve needle and core biopsies were obtained. The lesion did appear to collapse after the 1st pass and appeared to contain fluid centrally. After 3 passes were made, a marker clip was placed at the area of biopsy. The patient tolerated the procedure well and left the department in stable condition. IMPRESSION: Successful ultrasound guided core biopsy of the anechoic mass in the right axilla. Pathology results are currently pending. Dictated by: Dictated on workstation # [id number]
== END ==
LOC: RAD 12:30
PROVIDERS: ATTEND Family Medicine
DX: N63.31 Unspecified lump in axillary tail of the right breast (principal)
CPT/HCPCS: 19083; 76942; 88305; 88342; A4648

== ENCOUNTER → 2021-08-24 | Outpatient (CLI) | payer MEDICARE ==
[~2021-08-24] MED LIST changes: -LIDOCAINE 1% INJ 20 ML 20 ML VIAL INJ ONE
--- NOTE | 2021-08-24 12:23 | Diagnostic Imaging Report ---
INDICATION: 70-year-old postmenopausal female. COMPARISON: 02/16/2017 FINDINGS: AP Spine L1-L4: [BMD (g/cm2): 1.101] [T-Score: -0.8] [Z-Score: -0.3] [BMD Previous: 1.469] [BMD % Change: -25.1] LT Hip Neck: [BMD (g/cm2): 1.148] [T-Score: 0.8] [Z-Score: 1.7] LT Hip Total: [BMD (g/cm2):1.112] [T-Score:0.8] [Z-Score: 1.4] [BMD Previous: 1.208] [BMD % Change: -7.9] RT Hip Neck: [BMD (g/cm2):1.075] [T-Score:0.3] [Z-Score:1.2] RT Hip Total: [BMD (g/cm2):1.113] [T-score:0.8] [Z-Score:1.5] [BMD Previous:1.202] [BMD % Change:-7.4] *Indicates significant change from prior examination based on 95% confidence level. World Health Organization criteria for BMD interpretation classify patients as Normal (T-score at or above -1.0), Osteopenic (T-score between -1.0 and -2.5) or Osteoporotic (T-score at or below -2.5). LIMITATIONS AND MODIFICATION: None. IMPRESSION: 1. Normal bone mineral density. 2. No significant change in bone mineral density since prior examination. 3. See below National Osteoporosis Foundation guidelines on when to potentially initiate pharmacologic therapy. Based on the National Osteoporosis Foundation Guidelines, pharmacologic treatment should be initiated in any of the following, unless clinical conditions suggest otherwise: * Any patient with prior fragility fracture of the hip or vertebrae. A spine fracture indicates 5X risk for subsequent spine fracture and 2X risk for subsequent hip fracture. * Osteoporosis (T-score <-2.5). * Postmenopausal women and men age 50 and older with low bone mass/osteopenia (T-score between -1.0 and -2.5) by DXA and 10-year major osteoporotic fracture greater than 20% or a 10-year probability of hip fracture greater than 3%. These fracture risks are supplied above in the FRAX score, if applicable. * Clinician judgement and/or patient preferences may indicate treatment for people with 10-year fracture probabilities above or below these levels. Dictated by: Dictated on workstation # [id number]
== END ==
LOC: RAD 10:30
PROVIDERS: ATTEND Family Medicine
DX: Z78.0 Asymptomatic menopausal state (principal); Z79.811 Long term (current) use of aromatase inhibitors
CPT/HCPCS: 77080

== ENCOUNTER → 2021-09-20 | Outpatient (CLI) | payer MEDICARE ==
--- NOTE | 2021-09-20 12:49 | Diagnostic Imaging Report ---
INDICATION: Left breast carcinoma. Correlation is made with prior left mammogram from 06/23/2020 and 10/24/2017. Unilateral left 2-D and 3-D diagnostic mammography was performed with CAD. Left breast is heterogeneously dense, limiting the sensitivity of mammography. Overall parenchymal pattern is stable. No mass or malignant-appearing microcalcifications are seen. There are benign calcifications in left breast. Left axilla is unremarkable. IMPRESSION: No mammographic features suspicious for malignancy are identified. BI-RADS Category 2 ACR BI-RADS Category 2: Benign findings. Result letter will be mailed to the patient. Note: At least 10% of breast cancer is not imaged by mammography. Dictated by: Dictated on workstation # [id number]
== END ==
LOC: RAD 12:27
PROVIDERS: ATTEND Internal Medicine Hematology & Oncology
DX: Z85.3 Personal history of malignant neoplasm of breast (principal)
CPT/HCPCS: 77065; G0279

== ENCOUNTER 2021-10-11 10:36 | Outpatient (RCR) | payer MEDICARE ==
[2021-10-11 10:45] LABS: BASOPHILS # (AUTO) 0.1 10^3/uL (0.0-0.1); BASOPHILS % (AUTO) 1 % (0-10); EOSINOPHILS % (AUTO) 0 % (0-10); HEMATOCRIT 40 % (35-52); HEMOGLOBIN 12.7 g/dL (11.5-16.0); LYMPHOCYTES # (AUTO) 1.8 10^3/uL (1.0-4.0); LYMPHOCYTES % (AUTO) 21 % (12-44); MEAN CORPUSCULAR HEMOGLOBIN 30 pg (25-34); MEAN CORPUSCULAR HGB CONC 31 g/dL (32-36); MEAN CORPUSCULAR VOLUME 97 fL (80-99); MEAN PLATELET VOLUME 10.3 fL (9.0-12.2); MONOCYTES # (AUTO) 0.8 10^3/uL (0.0-1.0); MONOCYTES % (AUTO) 9 % (0-12); NEUTROPHILS # (AUTO) 6.1 10^3/uL (1.8-7.8); NEUTROPHILS % (AUTO) 69 % (42-75); PLATELET COUNT 198 10^3/uL (130-400); WHITE BLOOD COUNT 8.9 10^3/uL (4.3-11.0)
[2021-10-11 11:04] LABS: ALBUMIN 4.2 GM/DL (3.2-4.5); BILIRUBIN,TOTAL 0.5 MG/DL (0.1-1.0); CALCIUM 9.8 MG/DL (8.5-10.1); CREATININE SERUM 1.35 MG/DL (0.60-1.30); POTASSIUM 4.2 MMOL/L (3.6-5.0); TOTAL PROTEIN 7.8 GM/DL (6.4-8.2)
== END 2021-10-18 | disposition home or self-care (01) ==
LOC: ONC 10:36
PROVIDERS: ATTEND Internal Medicine Hematology & Oncology
DX: D05.11 Intraductal carcinoma in situ of right breast (principal); I25.10 Atherosclerotic heart disease of native coronary artery without angina pectoris; J44.9 Chronic obstructive pulmonary disease, unspecified; Z90.710 Acquired absence of both cervix and uterus; Z90.49 Acquired absence of other specified parts of digestive tract; Z90.89 Acquired absence of other organs; Z87.891 Personal history of nicotine dependence; Z90.11 Acquired absence of right breast and nipple; Z85.43 Personal history of malignant neoplasm of ovary
CPT/HCPCS: 80053; 85025; G0463; 99213

== ENCOUNTER → 2021-12-14 | Outpatient (CLI) | payer MEDICARE | LOC: CARD 10:00 | PROVIDERS: ATTEND Family Medicine | DX: I51.7 Cardiomegaly (principal); I34.0 Nonrheumatic mitral (valve) insufficiency | CPT/HCPCS: 93306 ==

== ENCOUNTER 2022-01-10 10:35 | Outpatient (RCR) | payer MEDICARE | END 2022-01-15 | disposition home or self-care (01) | LOC: ONC 10:35 | PROVIDERS: ATTEND Internal Medicine Hematology & Oncology | DX: J44.9 Chronic obstructive pulmonary disease, unspecified (principal); Z98.890 Other specified postprocedural states; Z85.43 Personal history of malignant neoplasm of ovary; Z90.710 Acquired absence of both cervix and uterus | CPT/HCPCS: 99213 ==

== ENCOUNTER 2022-07-14 09:44 | Outpatient (RCR) | payer MEDICARE ==
[2022-07-14 10:05] LABS: BASOPHILS % (AUTO) 1 % (0-10); EOSINOPHILS % (AUTO) 0 % (0-10); HEMATOCRIT 37 % (35-52); HEMOGLOBIN 11.8 g/dL (11.5-16.0); LYMPHOCYTES # (AUTO) 1.4 X 10^3 (1.0-4.0); LYMPHOCYTES % (AUTO) 18 % (12-44); MEAN CORPUSCULAR HEMOGLOBIN 31 pg (25-34); MEAN CORPUSCULAR HGB CONC 32 g/dL (32-36); MEAN CORPUSCULAR VOLUME 96 fL (80-99); MEAN PLATELET VOLUME 10.5 fL (9.0-12.2); MONOCYTES # (AUTO) 0.5 X 10^3 (0.0-1.0); MONOCYTES % (AUTO) 6 % (0-12); NEUTROPHILS # (AUTO) 5.7 X 10^3 (1.8-7.8); NEUTROPHILS % (AUTO) 74 % (42-75); PLATELET COUNT 189 10^3/uL (130-400); WHITE BLOOD COUNT 7.7 10^3/uL (4.3-11.0)
[2022-07-14 10:23] LABS: ALBUMIN 4.4 GM/DL (3.2-4.5); BILIRUBIN,TOTAL 0.4 MG/DL (0.1-1.0); CALCIUM 9.2 MG/DL (8.5-10.1); CREATININE SERUM 1.44 MG/DL (0.60-1.30); POTASSIUM 3.9 MMOL/L (3.6-5.0)
== END 2022-07-18 | disposition home or self-care (01) ==
LOC: ONC 09:44
PROVIDERS: ATTEND Internal Medicine Hematology & Oncology
DX: C50.911 Malignant neoplasm of unspecified site of right female breast (principal); J44.9 Chronic obstructive pulmonary disease, unspecified; E11.9 Type 2 diabetes mellitus without complications; I25.10 Atherosclerotic heart disease of native coronary artery without angina pectoris; E78.2 Mixed hyperlipidemia; Z90.49 Acquired absence of other specified parts of digestive tract; Z95.5 Presence of coronary angioplasty implant and graft; R91.1 Solitary pulmonary nodule; Z85.43 Personal history of malignant neoplasm of ovary; Z90.710 Acquired absence of both cervix and uterus; Z98.890 Other specified postprocedural states
CPT/HCPCS: 80053; 85025; G0463; 36415; 99213

== ENCOUNTER 2023-01-12 09:44 | Outpatient (RCR) | payer MEDICARE ==
[2023-01-12 10:10] LABS: BASOPHILS % (AUTO) 1 % (0-10); EOSINOPHILS % (AUTO) 0 % (0-10); HEMATOCRIT 36 % (35-52); HEMOGLOBIN 11.7 g/dL (11.5-16.0); LYMPHOCYTES # (AUTO) 1.7 10^3/uL (1.0-4.0); LYMPHOCYTES % (AUTO) 24 % (12-44); MEAN CORPUSCULAR HEMOGLOBIN 30 pg (25-34); MEAN CORPUSCULAR HGB CONC 33 g/dL (32-36); MEAN CORPUSCULAR VOLUME 93 fL (80-99); MEAN PLATELET VOLUME 10.8 fL (9.0-12.2); MONOCYTES # (AUTO) 0.6 10^3/uL (0.0-1.0); MONOCYTES % (AUTO) 8 % (0-12); NEUTROPHILS % (AUTO) 68 % (42-75); PLATELET COUNT 178 10^3/uL (130-400); WHITE BLOOD COUNT 7.3 10^3/uL (4.3-11.0)
[2023-01-12 10:34] LABS: ALANINE AMINOTRANSFERASE 36 U/L (0-55); ALBUMIN 4.6 GM/DL (3.2-4.5); ALKALINE PHOSPHATASE 53 U/L (40-136); BILIRUBIN,TOTAL 0.5 MG/DL (0.1-1.0); BUN/CREATININE RATIO 23; CALCIUM 9.8 MG/DL (8.5-10.1); CARBON DIOXIDE 24 MMOL/L (21-32); CHLORIDE 104 MMOL/L (98-107); CREATININE SERUM 1.32 MG/DL (0.60-1.30); GFR ESTIMATED 43; GLUCOSE 139 MG/DL (70-105); POTASSIUM 4.2 MMOL/L (3.6-5.0); SODIUM 141 MMOL/L (135-145); TOTAL PROTEIN 7.9 GM/DL (6.4-8.2)
== END 2023-01-15 | disposition home or self-care (01) ==
LOC: ONC 09:44
PROVIDERS: ATTEND Internal Medicine Hematology & Oncology
DX: C50.911 Malignant neoplasm of unspecified site of right female breast (principal); J44.9 Chronic obstructive pulmonary disease, unspecified; E11.9 Type 2 diabetes mellitus without complications; I25.10 Atherosclerotic heart disease of native coronary artery without angina pectoris; E78.2 Mixed hyperlipidemia; Z90.49 Acquired absence of other specified parts of digestive tract; Z95.5 Presence of coronary angioplasty implant and graft; Z85.43 Personal history of malignant neoplasm of ovary
CPT/HCPCS: 80053; 85025

== ENCOUNTER 2023-07-20 10:27 | Outpatient (RCR) | payer MEDICARE | END 2023-08-17 | disposition home or self-care (01) | LOC: ONC 10:27 | PROVIDERS: ATTEND Internal Medicine Hematology & Oncology | DX: D05.11 Intraductal carcinoma in situ of right breast (principal); D50.9 Iron deficiency anemia, unspecified; J44.9 Chronic obstructive pulmonary disease, unspecified; Z90.49 Acquired absence of other specified parts of digestive tract; Z90.11 Acquired absence of right breast and nipple; I10 Essential (primary) hypertension; Z87.891 Personal history of nicotine dependence; E11.9 Type 2 diabetes mellitus without complications | CPT/HCPCS: 99214 ==